=== PATIENT | male | born 1950 | race Caucasian/White ===

== ENCOUNTER 2022-08-23 12:07 | Emergency (ER) | payer OTHER, SELFPAY ==
--- NOTE | ~2022-08-23 | CT_ITS ---
EXAMINATION: CT brain wo con DATE: 08/23/2022 16:43 INDICATION: Left eye pain for one month. TECHNIQUE: Computed tomography (CT) of the head was performed without intravenous contrast. The dose- length product was 605.33 mGy-cm. Automated exposure control and iterative reconstruction technique w ere employed. COMPARISON: None FINDINGS: Generalized atrophy. There are scattered mild periventricular and subcortical white matter changes, most likely related to small vessel ischemic disease (microangiopathy). No acute intracrania l hemorrhage, infarction, mass or mass effect. No ventriculomegaly or midline shift. Paranasal sinuse s and mastoids are pneumatized. No depressed skull fractures. IMPRESSION: 1. No acute intracranial abnormality. 2: Chronic age-related findings. Reviewed, dictated and finalized at location A. [facility]
[2022-08-23 12:15] VITALS: BP 151/93; PULSE 68; RESP 20; TEMP 36.6; O2SAT 98
[2022-08-23 16:05] VITALS: BP 149/71; PULSE 67; RESP 18; O2SAT 99
--- NOTE | 2022-08-23 16:47 | ED.EYEPROB ---
HPI - Eye Problem General Chief complaint: Eye Problems Stated complaint: pain behind left eye. Sent by PCP for cat scan Time Seen by Provider: 08/23/22 16:23 History of Present Illness HPI Narrative: Pt presents with intermittent brief pain behind left eye for the last few days. Pt says he had some difficulty seeing when driving at night the other night but otherwise vision is similar to his baseline. Pt says the sharp pain lasts for a second or two and resolves. Pt denies ALMANZA, Nausea or vomiting. Related Data Allergies Allergy/AdvReac Type Severity Reaction Status Date / Time No Known Allergies Allergy Mild Verified 06/01/22 10:58 Review of Systems Review of Systems: All systems reviewed & are unremarkable except as noted in HPI and below PMFSH Past Medical History Medical History Alcohol abuse Arthritis of spine Atherosclerosis of abdominal aorta Benign essential HTN Elevated PSA Herniated disc Hyperlipidemia Lumbar spondylosis Melanoma Peritonitis Surgical History Surgical History H/O melanoma excision chest and back History of cholecystectomy History of reversal of ileostomy Hx of ileostomy Family History Family History Father Hypertension Social History Social History (Updated 06/01/22 @ 10:59 by Marianna Bradford) Social History: Smoking status: Never smoker Second hand tobacco smoke exposure: No Alcohol intake: current Drinks per week: 28 Alcohol use details: Pt drinks 4 alcoholic drinks a day. Substance use: never Substance use type: does not use Gender identity (if verbalized by the patient): Male Sexual Orientation (if Verbalized by the Patient): Straight or Heterosexual Exam Const: General: healthy appearing Nutritional Appearance: well nourished Orientation/consciousness: patient oriented x3 Limitations: no limitations HENMT: Head: normal to inspection Eyes: Conjunctivae: conjunctivae normal Pupils: Equal, round and reactive pupils present EOM: EOMs intact bilaterally Direct Ophthalmoscopy: no photophobia Other: eye not firm to palpation, pupils reactive, not midpoint Neck: Neck: normal visual inspection Resp: Effort & Inspection: normal respiratory effort Auscultation: clear to auscultation bilaterally Cardio: Rate: regular rate Rhythm: regular rhythm GI: Auscultation: normal bowel sounds Skin: General skin exam: normal color Rashes: no rashes Neuro: General: patient oriented x3, moves all extremities, no meningeal signs, no focal motor deficits and CN's II-XI intact bilaterally Cranial nerves: Yes Nystagmus not present Speech: normal speech Extrem: General: normal to inspection and no clubbing, cyanosis or edema Psych: Mental Status: mental status grossly normal Affect: normal affect Attitude: cooperative Course Vital Signs Vital signs: Vital Signs Temperature 97.9 F 08/23/22 12:15 Pulse Rate 68 08/23/22 12:15 Respiratory Rate 20 08/23/22 12:15 Blood Pressure 151/93 H 08/23/22 12:15 Pulse Oximetry 98 08/23/22 12:15 Oxygen Delivery Room Air 08/23/22 12:15 Temperature 97.9 F 08/23/22 12:15 Pulse Rate 65 08/23/22 17:21 Respiratory Rate 18 08/23/22 17:21 Blood Pressure 137/62 08/23/22 17:21 Pulse Oximetry 98 08/23/22 17:21 Oxygen Delivery Room Air 08/23/22 16:05 MDM - Eye Problem Lab Data Result diagrams: 08/23/22 16:03 Labs: Lab Results 08/23/22 Range/Units 16:03 Sodium Pending Potassium Pending Chloride Pending Carbon Dioxide Pending Anion Gap Pending BUN Pending Creatinine Pending Estim Creat Clear Calc Pending Estimated GFR Pending Glucose Pending Calcium Pending Total Bilirubin Pending AST Pending ALT Pending Alkaline Phosphatase Pending Tot
--- NOTE | 2022-08-23 16:56 | PC.NURSE ---
Per EDP Millan, no further blood work or EKG needed.
[2022-08-23 17:21] VITALS: BP 137/62; PULSE 65; RESP 18; O2SAT 98
== END 2022-08-23 17:21 | disposition home or self-care (01) ==
PROVIDERS: Emergency Provider Emergency Medicine; PCP Family Medicine
DX: H57.12 Ocular pain, left eye (principal); M19.90 Unspecified osteoarthritis, unspecified site; I10 Essential (primary) hypertension
CPT/HCPCS: 36415; 70450; 99284

== ENCOUNTER 2024-10-26 09:43 | Emergency (ER) | payer OTHER, SELFPAY ==
--- NOTE | ~2024-10-26 | CT_ITS ---
EXAMINATION: CT abdomen pelvis w con DATE: 10/26/2024 10:55 INDICATION: Abdominal pain. TECHNIQUE: Computed tomography (CT) of the abdomen and pelvis was performed with 100 mL Omnipaque 350 intravenous contrast. Automated exposure control and iterative reconstruction technique were employe d. The dose-length product was 1271.97 mGy-cm. COMPARISON: CT abdomen and pelvis 09/24/2010 FINDINGS: The visualized portions of the lung bases demonstrate mild atelectasis and mild chronic gabriela g disease. No pleural effusion. The heart size is normal. There are coronary artery calcifications. T here are calcifications of the aortic valve. No pericardial effusion. There is pneumobilia in the tia er, likely secondary to sphincterotomy. There are changes of cholecystectomy. The spleen, pancreas, a nd adrenal glands are normal. There are cysts in the kidneys measuring up to 8 mm on the right. There is a 2 mm stone in right kidney. The prostate is moderately enlarged. There is diverticulosis of the colon without evidence of diverticulitis. There are changes right hemicolectomy. There are no pathol ogically enlarged lymph nodes. There is no free intraperitoneal fluid. There are multiple supraumbili rea ventral hernias containing fat. There is moderate lower lumbar spondylosis. IMPRESSION: 1. Supraumbilical ventral hernias containing fat. Reviewed, dictated and finalized at location A. ANALYST
[2024-10-26 09:45] VITALS: BP 172/73; PULSE 63; RESP 20; TEMP 36.4; O2SAT 100
--- OUTSIDE RECORDS SUMMARY | 2024-10-26 09:45 | XMS_ITS | Referral Summary ---
Author Organization [facility] Address [address] [place] [place] [address] Care Team Providers Care Flaring Machine Operator Name Role Phone Unavailable Primary Care Provider Unavailabl e Source Comments [facility],non-owned Affiliates and Associated Physician Practices is amultiple site organization consisting of ambulatory clinics and hospital sitesin [place], [place], [place] and [place]. This disclosure is being madepursuant to the Care Everywhere program and may not contain all information available regarding this patient. Last updated 18.[facility] [employer] Social History Tobacco Use Types Packs/Day Years Used Date Smoking Tobacco: Never Assessed Sex and Gender Information Value Date Recorded Sex Assigned at Not on file Gender Identity Not on file Sexual Orientation Not on file Plan of Treatment Not on file
--- OUTSIDE RECORDS SUMMARY | 2024-10-26 09:45 | XMS_ITS | Encounter Summary ---
Author Organization [facility] Address [address] [place] [address] Care Team Providers Care Big Data Software Engineer Name Role Phone Unavailable Primary Care Provider Unavailabl e Encounter Details Date Type Department Care Team (Late st Contact Info) Description 05/14/2024 Lab Requisition [facility] - DermPath Lab [address] [place] [address] Harris Hopkins MD [facility] DERMATOLOGY [address] [place] [phone] Basal cell carcinoma of skin of left lower limb, including hip Social History Tobacco Use Types Packs/Day Years Used Date Smoking Tobacco: Never Assessed Sex and Gender Information Value Date Recorded Sex Assigned at Not on file Gender Identity Not on file Sexual Orientation Not on file documented as of this encounter Plan of Treatment Not on file documented as of this encounter Procedures Procedure Name Priority Date/Time Associated Diagnosis Comments DERMATOPATHOLOGY Routine 05/14/2024 3:33 AM CDT Basal cell carcinoma of skin of left lower limb, including hip documented in this encounter Results * DERMATOPATHOLOGY (05/14/2024 3:33 AM CDT) Case Report Dermatopathology Report ? Case: [id number] ? Authorizing Provider: ??Harris Hopkins MD ? Collected: ? 05/14/2024 03:33 AM ? Ordering Location: ? [facility] - ??Received: ?05/15/2024 11:02 AM ? DermPath Lab ? Pathologist: ? Claudia Damon MD ? Specimen: ?Skin, left anterior distal thigh ? 4 2:50 PM CDT DERMATOPATHOLOGY LABORATORY Final Diagnosis Specimen A. SKIN, left anterior distal thigh: BASAL CELL CARCINOMA (C44.719) NOT PRESENT AT MARGIN DERMAL SCAR (L90.5) 4 2:50 PM CDT DERMATOPATHOLOGY LABORATORY Clinical History BCC Please check margins 4 2:50 PM CDT DERMATOPATHOLOGY LABORATORY Gross Description Specimen A: Received is one formalin filled container labeled with the patient's name and designated left anterior distal thigh. The specimen consists of a non-oriented ellipse of skin measuring 67b26h5 mm. The epidermal surface is unremarkable. The margin is inked green. The 12 o'clock and 6 o'clock tips are submitted in cassette 1. The remainder of the ellipse is serially sectioned and submitted in cassette 2-4. Jar 0. 4 2:50 PM CDT DERMATOPATHOLOGY LABORATORY Microscopic Description Specimen A. SKIN, left anterior distal thigh: Within the dermis there are aggregates of basaloid cells with a high nuclear to cytoplasmic ratio and peripheral palisading. This lesion is not present at the margin of the specimen. There are fibroblasts and collagen bundles oriented parallel to the skin surface with elongated blood vessels, some of which are oriented perpendicular to the skin surface. 4 2:50 PM CDT DERMATOPATHOLOGY LABORATORY Disclaimer An external and internal positive and negative controls are appropriate for the histochemical, immunohistochemical and immunofluorescence stain(s) in this case (if any), except where stated explicitly. The performance characteristics of the stain(s) cited in this report were developed and its performance characteristic determined by the Dermatopathology Laboratory at [facility], directed by Dr. Geoffrey Sosa. These tests need not be, and therefore are not, approved by the [place] Food and Drug Administration. The tests are used for clinical purposes. Billing Codes Specimen Charges Stain Charges 50952 1 4 2:50 PM CDT DERMATOPATHOLOGY LABORATORY Embedded Images 4 2:50 PM CDT DERMATOPATHOLOGY LABORATORY Pathology/Cytolo gy TISSUE SPECIMEN FROM SKIN / Unknown 05/14/2024 3:33 AM CDT 05/15/2024 11:02 AM CDT Harris Hopkins MD LAB - PATHOLOGY/CYTO LOGY ORDERABLES DERMATOPATHOLOGY LABORATORY [facility] - Department of Dermatology [address], [address] [phone] documented in this encounter Visit Diagnoses Diagnosis Basal cell carcinoma of skin of left lower limb, including hip Basal cell carcinoma of skin of lower limb, including hip documented in this encounter
--- OUTSIDE RECORDS SUMMARY | 2024-10-26 09:45 | XMS_ITS | Patient Health Summary ---
Author Organization [facility] Address [address] [place] [address] Care Team Providers Care Neuropathologist Name Role Phone Unavailable Primary Care Provider Unavailabl e Note from [facility],non-owned Affiliates and Associated Physician Practices is amultiple site organization consisting of ambulatory clinics and hospital sitesin [place], [place], [place] and [place]. This disclosure is being madepursuant to the Care Everywhere program and may not contain all information available regarding this patient. Last updated 18.[facility] [employer] Social History Tobacco Use Types Packs/Day Years Used Date Smoking Tobacco: Never Assessed Sex and Gender Information Value Date Recorded Sex Assigned at Not on file Gender Identity Not on file Sexual Orientation Not on file Procedures * DERMATOPATHOLOGY(Performed 05/14/2024) Performed for Basal cell carcinoma of skin of left lower limb, including hip Results * DERMATOPATHOLOGY (05/14/2024 3:33 AM CDT) Case Report Dermatopathology Report ? Case: [id number] ? Authorizing Provider: ??Harris Hopkins MD ? [...] LABORATORY Clinical History BCC Please check margins 2:50 PM CDT DERMATOPATHOLOGY LABORATORY Gross Description Specimen A: Received is one formalin filled container labeled with the patient's name and designated left anterior distal thigh. The specimen consists of a non-oriented ellipse of skin measuring 16w49x5 mm. The epidermal surface is unremarkable. The [...] to the skin surface. 4 2:50 PM T DERMATOPATHOLOGY LABORATORY Disclaimer An external and internal positive and negative controls are appropriate for the histochemical, immunohistochemical and immunofluorescence stain(s) in this case (if any), except where stated explicitly. The performance characteristics of the stain(s) cited in this report were developed and its performance characteristic determined by the Dermatopathology Laboratory at [facility], directed by Dr. Geoffrey Sosa. These tests need not be, and therefore are not, approved by the [place] Food and Drug Administration. The tests are used for clinical purposes. Billing Codes Specimen Charges Stain Charges 26841 1 4 2:50 PM CDT DERMATOPATHOLOGY LABORATORY Embedded Images 4 2:50 PM CDT DERMATOPATHOLOGY LABORATORY Pathology/Cytolo gy TISSUE SPECIMEN FROM SKIN / Unknown 05/14/2024 3:33 AM CDT 05/15/2024 11:02 AM CDT Harris Hopkins MD LAB - PATHOLOGY/CYTO LOGY ORDERABLES DERMATOPATHOLOGY LABORATORY [facility] - Department of Dermatology [address], [address] [phone]
--- OUTSIDE RECORDS SUMMARY | 2024-10-26 09:45 | XMS_ITS | Clinical Summary ---
Author Organization [facility] Address [address] [place] [address] Care Team Providers Care Side Show Entertainer Name Role Phone Unavailable Primary Care Provider Unavailabl e Source Comments [facility],non-owned Affiliates and Associated Physician Practices is amultiple site organization consisting of ambulatory clinics and hospital sitesin [place], [place], [place] and [place]. This disclosure is being madepursuant to the Care Everywhere program and may not contain all information available regarding this patient. Last updated 18.[facility] Social History Tobacco Use Types Packs/Day Years Used Date Smoking Tobacco: Never Assessed Sex and Gender Information Value Date Recorded Sex Assigned at Not on file Gender Identity Not on file Sexual Orientation Not on file Plan of Treatment Health Maintenance Due Date Last Done Comments COLOGUARD (AGES 45-75) - COL ON CA SCREENING 1951 COLON MONITORING 1951 COLONOSCOPY - COLON CA SCREENING 1951 CT COLONOGRAPHY - COLON CA SCREENING 1950 Colorectal Cancer Screening 1950 FIT - COLON CA SCREENING 1951 FLEX SIG - COLON CA SCREENING 1950 LIPID TESTING 1950 HEPATITIS C SCREENING 05/03/1969 DTAP/TDAP/TD VACCINES (1 - Tdap) 1970 PNEUMOCOCCAL VACCINE 50+ (1 of 1 - PCV) 2001 ZOSTER VACCINE (1 of 2) 2001 COVID-19 VACCINE ( - 2023-2 5 season) 2024 INFLUENZA VACCINE (#1) 2024 DEPRESSION SCREENING 09/25/2024 MEDICARE AWV ? CALENDAR YEAR 2024 Respiratory Syncytial Virus (RSV) Vaccine Pt: or over 60 yrs (1 - 1-dose 75+ series) 2026 HEPATITIS B VACCINE Aged Out No longe r eligible based on patient's age to complete this topic HIB VACCINE Aged Out No longer eligi ble based on patient's age to complete this topic HPV VACCINE Aged Out No longer eligi ble based on patient's age to complete this topic MENINGOCOCCAL (Group B) VACCINE Aged Out No longer eligible based on patient's age to complete this topic MENINGOCOCCAL VACCINE Aged Out No maribel mavis eligible based on patient's age to complete this topic
--- NOTE | 2024-10-26 09:58 | ED.ABDPAIN ---
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 Patient denies any fever, chills, nausea, vomiting, diarrhea, constipation or urinary symptoms. He denied any recent new physical activity or stress. History of cholecystectomy, appendectomy, colon resection secondary to unknown etiology. Related Data Allergies Allergy/AdvReac Type Severity Reaction Status Date / Time No Known Allergies Allergy Mild Verified 10/26/24 09:54 Review of Systems Review of Systems: All systems reviewed & are unremarkable except as noted in HPI and below PMFSH Past Medical History Medical History Atherosclerosis of abdominal aorta Alcohol abuse Lumbar spondylosis Arthritis of spine Elevated PSA Melanoma Hyperlipidemia Benign essential HTN Peritonitis Herniated disc Surgical History Surgical History Hx of ileostomy H/O melanoma excision chest and back History of reversal of ileostomy History of cholecystectomy Family History Family History Father Hypertension Social History Social History Social History: Smoking status: Never smoker Second hand tobacco smoke exposure: No Alcohol intake: current Drinks per week: 28 Alcohol use details: Pt drinks 4 alcoholic drinks a day. Substance use: never Substance use type: does not use Do You Feel Safe in your Home?: Yes Lack of Transportation: No Lack of Food: Never True Current Housing: I Have Housing Concerned About Future Housing: No Difficulty Paying Gas/Electric Bills: No Difficulty Paying for Meds: No Currently Unemployed: YES Education: Don't Know Difficulty w/ Childcare or Family Care: No Living arrangements: with family Occupation/Education: retired Gender identity (if verbalized by the patient): Male Sexual Orientation (if Verbalized by the Patient): Straight or Heterosexual Exam Narrative: General appearance: Well-developed, well-nourished Skin: Normal color Head: Normocephalic, nontraumatic Eyes: Clear conjunctiva ENT: Oropharynx normal, ears normal, nose normal Neck: Supple, nontender Chest and respiratory: Airway patent, no respiratory distress, no accessory muscle use Heart: Regular rate/rhythm Abdomen: Soft, diffuse tenderness lower abdomen bilaterally, no guarding or rebound, no organomegaly, quiet bowel sounds Vascular: Normal peripheral pulses, normal capillary refill. 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, no gross motor deficit Course Vital Signs Vital signs: Vital Signs Temperature 36.4 C L 10/26/24 09:45 Pulse Rate 63 10/26/24 09:45 Respiratory Rate 20 10/26/24 09:45 Blood Pressure 172/73 H 10/26/24 09:45 Pulse Oximetry 100 10/26/24 09:45 Oxygen Delivery Room Air 10/26/24 09:45 Temperature 36.6 C 10/26/24 11:30 Pulse Rate 76 10/26/24 11:30 Respiratory Rate 14 10/26/24 11:30 Blood Pressure 140/62 10/26/24 11:30 Pulse Oximetry 97 10/26/24 11:30 Oxygen Delivery Room Air 10/26/24 09:45 MDM - Abdominal Pain MDM Narrative Medical decision making narrative: Patient presents with abdominal pain Vital signs showing blood pressure 172/73 Physical examination showing diffuse tenderness of the abdomen Differential diagnosis include cholecystitis, appendicitis, pancreatitis, constipation, colitis, diverticulitis, urinary tract infection, stress like symptoms Blood workup today includes CBC, CMP lipase showed insignificant abnormality Urinalysis showed no evidence of infection CT abdomen and pelvis with IV contrast showed umbilical hernia containing fat. On arrival to the ED patient pain was 10/10, currently 2/10. Patient is telling me that the pain was so severe this morning according get up or stand or sit or lay down with very a uncomfortable. I did offer patient to be hospitalized overnight to monitor his abdominal pain, he declined and would like to see how it goes at home. Diagnosis abdominal pain of unknown etiology Discharged on Bentyl, Tylenol, ibuprofen as needed The pt was discharged to home.the pt,s condition upon discharge was fair,education was provided to the pt in reference to the final impression,discharge study results,treatment,prognosis and need for follow up . Lab Data 10/26/24 10:01 10/26/24 10:01 Labs: Lab Results 10/26/24 10/26/24 10/26/24 Range/Units 10:01 10:11 10:37 WBC 6.5 (4.5-10.0) K/mm3 RBC 4.70 (4.6-6.20) M/mm3 Hgb 15.0 (14.0-18.0) g/dL Hct 44.2 (42.0-52.0) % MCV 94.0 (80-100) fl MCH 31.9 (26-34) pg MCHC 33.9 (32-36) g/dl RDW 13.0 (11.5-14.5) % Plt Count 191 (150-375) k/mm3 MPV 10.4 (7.4-10.4) fl Immature Gran % (Auto) 0.8 H (0-0.5) % Neut % (Auto) 75.5 H (45.5-73.1) % Lymph % (Auto) 15.2 L (18.3-44.2) % Kay % (Auto) 5.7 (2.6-8.5) % Eos % (Auto) 2.0 (0-4.4) % Baso % (Auto) 0.8 (0.2-1.2) % Lymph # (Auto) 0.98 (0.9-3.2) K/mm3 Kay # (Auto) 0.4 (0.1-0.6) K/mm3 Eos # (Auto) 0.1 (0-0.3) K/mm3 Baso # (Auto) 0.1 (0.0-0.1) K/mm3 Abs Immat Gran (auto) 0.05 H (0.00-0.031) K/mm3 Absolute Neuts (auto) 4.9 (1.3-6.7) K/mm3 Absolute Nucleated RBC 0.000 (0.0-0.012) K/mm3 Nucleated RBC % 0.0 (0.0-0.2) % Sodium 138 (137-145) mmol/L Potassium 4.6 (3.4-5.0) mmol/L Chloride 105 (98-107) mmol/L Carbon Dioxide 19 L (22-30) mmol/L Anion Gap 14 H (4-12) mmol/L BUN 16 (9-20) mg/dL Creatinine 0.99 (0.7-1.3) mg/dL Estim Creat Clear Calc 78 ml/min Estimated GFR > 60 (59 - ) Glucose 149 H (65-110) mg/dL Lactic Acid 1.2 (0.7-2.0) mmol/L Calcium 9.6 (8.4-10.2) mg/dL Total Bilirubin 0.6 (0.2-1.3) mg/dL AST 26 (17-59) U/L ALT 26 (6-50) U/L Alkaline Phosphatase 68 (38-126) U/L Troponin I < 0.012 (0.000-0.034) ng/mL Total Protein 8.0 (6.3-8.2) g/dL Albumin 4.6 (3.5-5.1) g/dL Lipase 122 (23-300) U/L Urine Color Yellow (Yellow) Urine Appearance Clear (Clear) Urine pH 5.0 (5.0-9.0) Ur Specific [place] 1.024 (1.001-1.035) Urine Protein Trace (Negative) mg/dL Urine Glucose (UA) Negative (Negative) mg/dL Urine Ketones Negative (Negative) mg/dL Ur Blood (Man) 1+ H (Negative) Urine Nitrate Negative (Negative) Urine Bilirubin Negative (Negative) Urine Urobilinogen 0.2 (<2.0) mg/dL Leukocyte Esterase Rfl Negative (Negative) JAYJAY/UL Urine RBC 0-2 (0-2) /hpf Urine WBC 0-5 (0-3) /hpf Ur Squamous Epith Cells None seen (Few) /hpf Urine Bacteria None seen /hpf Urine Casts 0-2 Imaging Data Radiologist's impression: ITS Impressions Abdomen/Pelvis CT 10/26/24 10:56 IMPRESSION: 1. Supraumbilical ventral hernias containing fat. Critical Care Time Critical Care Time Critical Care Time: No Discharge Plan Discharge Clinical Impression: Abdominal pain Patient Disposition: Home, Self-Care Condition: Stable Instructions: Abdominal Pain (ED) Patient Language: Kinyarwanda Prescriptions: New dicyclomine 20 mg tablet 20 mg PO QID Qty: 20 0RF No Action amlodipine 5 mg tablet See Rx Instructions .ROUTE .COMPLEX Qty: 100 3RF Dose Instruction: TAKE 1 TABLET BY MOUTH EVERY DAY Rx Instructions: TAKE 1 TABLET BY MOUTH EVERY DAY losartan 100 mg tablet See Rx Instructions .ROUTE .COMPLEX Qty: 90 4RF Dose Instruction: TAKE 1 TABLET BY MOUTH EVERY DAY Rx Instructions: TAKE 1 TABLET BY MOUTH EVERY DAY metoprolol succinate 50 mg tablet extended release 24 hr See Rx Instructions .ROUTE .COMPLEX Qty: 90 1RF Dose Instruction: TAKE 1 TABLET BY MOUTH EVERY DAY Rx Instructions: TAKE 1 TABLET BY MOUTH EVERY DAY rosuvastatin 10 mg tablet See Rx Instructions .ROUTE .COMPLEX Qty: 90 1RF Dose Instruction: TAKE 1 TABLET BY MOUTH EVERY DAY Rx Instructions: TAKE 1 TABLET BY MOUTH EVERY DAY Follow-up/Referrals: Angelo Palmer MD [Primary Care Provider] -
--- NOTE | 2024-10-26 09:59 | ECG_ITS ---
Test Date: 2024-10-26 11:27:26 Measurements Intervals [place] Rate: 73 P: 29 CO: 219 QRS: 48 QRSD: 93 T: 67 QT: 391 QTc: 432 Interpretive Statements SINUS RHYTHM WITH FIRST DEGREE AV BLOCK WITH OCCASIONAL VENTRICULAR PREMATURE COMPLEXES BORDERLINE ECG No previous ECG available for comparison Electronically Signed On 10-26-2024 18:14:15 CHEMICAL LIBRARIAN by Hermelindo Ott D.O.
--- OUTSIDE RECORDS SUMMARY | 2024-10-26 10:06 | XMS_ITS | Clinical Summary ---
Author Organization [facility] [employer] Address [address] [place] [address] Care Team Providers Care Vegetable Farming Supervisor Name Role Phone Unavailable Primary Care Provider Unavailabl e Source Comments [facility] [employer],non-owned Affiliates and Associated Physician Practices is amultiple site organization consisting of ambulatory clinics and hospital sitesin [place], [place], [place] and [place]. This disclosure is being madepursuant to the Care Everywhere program and may not contain all information available regarding this patient. Last updated 18.[facility] [employer] Social History Tobacco Use Types Packs/Day Years [...]
--- OUTSIDE RECORDS SUMMARY | 2024-10-26 10:06 | XMS_ITS | Encounter Summary ---
Author Organization [facility] Address [address] [facility] [address] [place] [address] Care Team Providers Care Woods Overseer Name Role Phone Unavailable Primary Care Provider Unavailabl e Encounter Details Date Type Department Care Team (Late st Contact Info) Description 05/14/2024 Lab Requisition [facility] - DermPath Lab [address] [facility], [place] [address] Harris Hopkins MD [facility] DERMATOLOGY [address] [place] [phone] Basal cell carcinoma of skin of [...] CDT) Case Report Dermatopathology Report ? Case: [id number] ? Authorizing Provider: ??Harris Hopkins MD ? [...] of a non-oriented ellipse of skin measuring 65d28z6 mm. The epidermal surface is unremarkable. The [...] characteristic determined by the Dermatopathology Laboratory at [facility], directed by Dr. Geoffrey Sosa. These tests need not be, and therefore are not, approved by the [place] Food and Drug Administration. The tests are used for clinical purposes. Billing Codes Specimen Charges Stain Charges 37737 1 4 2:50 PM CDT DERMATOPATHOLOGY LABORATORY Embedded Images 4 2:50 PM CDT DERMATOPATHOLOGY LABORATORY Pathology/Cytolo gy TISSUE SPECIMEN FROM SKIN / Unknown 05/14/2024 3:33 AM CDT 05/15/2024 11:02 AM CDT Harris Hopkins MD LAB - PATHOLOGY/CYTO LOGY ORDERABLES DERMATOPATHOLOGY LABORATORY [facility] - Department of Dermatology [address], [address] [phone] documented in this encounter Visit Diagnoses Diagnosis Basal cell carcinoma of skin of left lower limb, including hip Basal cell carcinoma of skin of lower limb, including hip documented in this encounter
--- OUTSIDE RECORDS SUMMARY | 2024-10-26 10:06 | XMS_ITS | Referral Summary ---
Author Organization [facility] Address [address] [place] [address] Care Team Providers Care Athletic Shoe Designer Name Role Phone Unavailable Primary Care Provider Unavailabl e Source Comments [facility],non-owned Affiliates and Associated Physician Practices is amultiple site organization consisting of ambulatory clinics and hospital sitesin [place], [place], [place] and [place]. This disclosure is being madepursuant to the Care Everywhere program and may not contain all information available regarding this patient. Last updated 18.[facility] [employer] Social History Tobacco Use Types Packs/Day Years Used Date Smoking Tobacco: Never Assessed Sex and Gender Information Value Date Recorded Sex Assigned at Not on file Gender Identity Not on file Sexual Orientation Not on file Plan of Treatment Not on file
--- OUTSIDE RECORDS SUMMARY | 2024-10-26 10:06 | XMS_ITS | Patient Health Summary ---
Author Organization [facility] Address [address] [place] [address] Care Team Providers Care Intake Counselor Name Role Phone Unavailable Primary Care Provider Unavailabl e Note from [facility],non-owned Affiliates and Associated Physician Practices is amultiple site organization consisting of ambulatory clinics and hospital sitesin [place], [place], [place] and [place]. This disclosure is being madepursuant to the Care Everywhere program and may not contain all information available regarding this patient. Last updated 18.[facility] [employer] Social History Tobacco Use Types Packs/Day Years [...] CDT) Case Report Dermatopathology Report ? Case: [id number] ? Authorizing Provider: ??Harris Hopkins MD ? [...] of a non-oriented ellipse of skin measuring 32e32k2 mm. The epidermal surface is unremarkable. The [...] characteristic determined by the Dermatopathology Laboratory at [facility], directed by Dr. Geoffrey Sosa. These tests need not be, and therefore are not, approved by the [place] Food and Drug Administration. The tests are used for clinical purposes. Billing Codes Specimen Charges Stain Charges 77108 1 4 2:50 PM CDT DERMATOPATHOLOGY LABORATORY Embedded Images 4 2:50 PM CDT DERMATOPATHOLOGY LABORATORY Pathology/Cytolo gy TISSUE SPECIMEN FROM SKIN / Unknown 05/14/2024 3:33 AM CDT 05/15/2024 11:02 AM CDT Harris Hopkins MD LAB - PATHOLOGY/CYTO LOGY ORDERABLES DERMATOPATHOLOGY LABORATORY [facility] - Department of Dermatology [address], [address] [phone]
[2024-10-26] MEDS: SODIUM CHLORIDE 0.9% IV 1,000 ML 999 ML IV CONT (10:08)
[2024-10-26] MEDS: HYDROmorphone HCL INJ (*CRX) 1 MG/ML SYR 0.5 MG IV PUSH (10:09)
[2024-10-26] MEDS: ONDANSETRON INJ 4 MG/2 ML VIAL IV PUSH (10:09)
[2024-10-26 10:17] LABS: Basophils Absolute Auto 0.1 K/mm3 (0.0-0.1); Basophils Percent Auto 0.8 % (0.2-1.2); Eosinophils Absolute Auto 0.1 K/mm3 (0-0.3); Hematocrit 44.2 % (42.0-52.0); Immature Granulocyte Absolute 0.05 K/mm3 (0.00-0.031); Immature Granulocyte Percent A 0.8 % (0-0.5); Lymphocytes Absolute Auto 0.98 K/mm3 (0.9-3.2); Lymphocytes Percent Auto 15.2 % (18.3-44.2); Mean Corpuscular HGB Conc 33.9 g/dl (32-36); Mean Corpuscular Hemoglobin 31.9 pg (26-34); Mean Platelet Volume 10.4 fl (7.4-10.4); Monocytes Absolute Auto 0.4 K/mm3 (0.1-0.6); Monocytes Percent Auto 5.7 % (2.6-8.5); Neutrophils Absolute Auto 4.9 K/mm3 (1.3-6.7); Neutrophils Percent Auto 75.5 % (45.5-73.1); Platelet Count Result 191 k/mm3 (150-375); White Blood Count 6.5 K/mm3 (4.5-10.0)
[2024-10-26 10:29] LABS: Lactic Acid Reflex 1.2 mmol/L (0.7-2.0)
[2024-10-26 10:35] LABS: Alanine Aminotransferase 26 U/L (6-50); Albumin Level 4.6 g/dL (3.5-5.1); Alkaline Phosphatase 68 U/L (38-126); Anion Gap 14 mmol/L (4-12); Aspartate Amino Transferase 26 U/L (17-59); Bilirubin,Total 0.6 mg/dL (0.2-1.3); Blood Urea Nitrogen 16 mg/dL (9-20); Calcium 9.6 mg/dL (8.4-10.2); Carbon Dioxide 19 mmol/L (22-30); Chloride 105 mmol/L (98-107); Estimated CRCL calculation 78 ml/min; Estimated Glomerular Filt Rate > 60; Glucose 149 mg/dL (65-110); Lipase 122 U/L (23-300); Potassium 4.6 mmol/L (3.4-5.0); Sodium 138 mmol/L (137-145)
[2024-10-26 10:42] LABS: Troponin I < 0.012 ng/mL (0.000-0.034)
[2024-10-26 10:50] LABS: Add Urine Microscopic? YES; Appearance Urine Clear (Clear); Bacteria Urine None Seen /hpf; Bilirubin Urine Negative (Negative); Blood Urine 1+ (Negative); Color Urine Yellow (Yellow); Glucose Urine UA Negative (Negative); Ketones Urine Negative (Negative); Leukocyte Esterase Ur Negative LEU/UL (Negative); Nitrate Urine Negative (Negative); Non Pathogenic Casts 0-2; Protein Urine Trace mg/dL (Negative); RBC Urine 0-2 /hpf (0-2); Specific Grav Ur 1.024 (1.001-1.035); Squamous Epithelial Cell Urine None Seen /hpf (Few); Urobilinogen Urine 0.2 mg/dL (<2.0); WBC Urine 0-5 /hpf (0-3)
[2024-10-26 11:30] VITALS: BP 140/62; PULSE 76; RESP 14; TEMP 36.6; O2SAT 97
[2024-10-26 12:18] VITALS: BP 140/62; PULSE 66; RESP 16; O2SAT 98
[2024-10-26 13:03] VITALS: BP 149/73; PULSE 68; RESP 18; TEMP 36.4; O2SAT 100
== END 2024-10-26 13:05 | disposition home or self-care (01) ==
PROVIDERS: Emergency Provider Emergency Medicine; PCP Family Medicine
DX: R10.30 Lower abdominal pain, unspecified (principal); Z85.820 Personal history of malignant melanoma of skin; I10 Essential (primary) hypertension; E78.5 Hyperlipidemia, unspecified
CPT/HCPCS: 36415; 74177; 80053; 81001; 83605; 83690; 84484; 85025; 93005; 96361; 96374; 96375; 99284; J1171; J2405; J7030; Q9967

== ENCOUNTER 2024-10-31 12:01 | Observation (INO) | payer OTHER, SELFPAY ==
[2024-10-31] VITALS (9 sets, daily range): BP systolic 117–137; BP diastolic 48–74; PULSE 66–77; RESP 12–18; TEMP 36.3–37.3; O2SAT 95–100
--- NOTE | ~2024-10-31 | US_ITS ---
EXAMINATION: US scrotum doppler DATE: 10/31/2024 14:00 INDICATION: Scrotal pain and swelling TECHNIQUE: Testicular sonogram utilizing grayscale and Doppler COMPARISON: None. FINDINGS: The right testis measures 3.8 x 3.5 x 3.5 cm. The left testis measures 3.5 x 2.6 x 3.1 cm. There is h eterogeneous echogenicity with coarsened echotexture of the right testis relative to the left. Vascul ar flow is seen within the left testis but no definitive flow within the right testis on color Dopple r. There is a small complex right hydrocele with numerous thin linear echogenic internal septations. The right epididymis poorly defined, very echogenic and shadowing. 6 mm cyst within the otherwise nor mal left epididymis with normal vascular flow on color Doppler. Small anechoic left hydrocele. There is scrotal wall edema. IMPRESSION: 1. Enlarged and edematous left testis and epididymis with no evident vascular flow on color Doppler consistent with left testicular torsion. The ED physician Dr. Ling has been notified of these f indings by Dr. Menard. Reviewed, dictated and finalized at location A. LOADER IMPRESSION: 1. Enlarged and edematous left testis and epididymis with no evident vascular flow on color Doppler consistent with left testicular torsion. The ED physician Dr. Ling has been notified of these findings by Dr. Menard.
--- NOTE | ~2024-10-31 | CT_ITS ---
EXAMINATION: CT abdomen pelvis wo con DATE: 10/31/2024 13:56 INDICATION: Low abdominal pain. TECHNIQUE: Computed tomography (CT) of the abdomen and pelvis was performed without intravenous contr ast. Automated exposure control and iterative reconstruction technique were employed. The dose-length product was 1530.70 mGy-cm. COMPARISON: CT abdomen and pelvis 10/26/2024 FINDINGS: The visualized portions of lung bases demonstrate mild atelectasis and mild chronic lung di sease. No pleural effusion. The heart size is normal. There are coronary artery calcifications. No pe ricardial effusion. There is diffuse hepatic steatosis. Pneumobilia is likely secondary to sphinctero gregg. There are changes of cholecystectomy. The spleen, pancreas, adrenal glands, and left kidney are normal. There is a 2 mm stone in right kidney. The prostate is moderately enlarged. There is diverti culosis of the colon without evidence of diverticulitis. There are changes of right hemicolectomy. Th ere are no pathologically enlarged lymph nodes. There is no free intraperitoneal fluid. There is scro saadia skin thickening. The right testis demonstrates heterogeneous attenuation. There are small bilater al hydroceles. There is torsion of the right spermatic cord. There is subcutaneous edema in the anter ior perineum. There are no pathologically enlarged lymph nodes. There is no free intraperitoneal flui d. There is a supraumbilical ventral hernias containing fat. There is moderate lumbar spondylosis. IMPRESSION: 1. Torsion of the right spermatic cord. Heterogeneous attenuation of the right testis, consistent wit h infarct. I called this result to Rosy Ling. Reviewed, dictated and finalized at location A. UCT SUPPORT REP IMPRESSION: 1. Torsion of the right spermatic cord. Heterogeneous attenuation of the right testis, consistent with infarct. I called this result to Rosy Ling.
--- OUTSIDE RECORDS SUMMARY | 2024-10-31 12:05 | XMS_ITS | Clinical Summary ---
Author Organization [facility] [employer] Address [address] [place] [address] [place] [address] Care Team Providers Care Order Entry Name Role Phone Unavailable Primary Care Provider Unavailabl e Source Comments [facility] [employer],non-owned Affiliates and Associated Physician Practices is amultiple site organization consisting of ambulatory clinics and hospital sitesin [place], [place], [place] and [place]. This disclosure is being madepursuant to the Care Everywhere program and may not contain all information available regarding this patient. Last updated 18.[facility] [employer] Social History Tobacco Use Types Packs/Day Years [...] (#1) 2024 DEPRESSION SCREENING 09/25/2024 MEDICARE AWV CALENDAR YEAR 2024 Respiratory Syncytial Virus (RSV) [...]
--- OUTSIDE RECORDS SUMMARY | 2024-10-31 12:05 | XMS_ITS | Referral Summary ---
Author Organization [facility] Address [address] [facility] [place] [address] Care Team Providers Care Salvage Clerk Name Role Phone Unavailable Primary Care Provider Unavailabl e Source Comments [facility],non-owned Affiliates and Associated Physician Practices is amultiple site organization consisting of ambulatory clinics and hospital sitesin [place], [place], [place] and [place]. This disclosure is being madepursuant to the Care Everywhere program and may not contain all information available regarding this patient. Last updated 18.[facility] [employer] Social History Tobacco Use Types Packs/Day Years Used Date Smoking Tobacco: Never Assessed Sex and Gender Information Value Date Recorded Sex Assigned at Not on file Gender Identity Not on file Sexual Orientation Not on file Plan of Treatment Not on file
--- OUTSIDE RECORDS SUMMARY | 2024-10-31 12:05 | XMS_ITS | Patient Health Summary ---
Author Organization [facility] [employer] Address [address] [place] [address] Care Team Providers Care Technician Preventative Medicine Name Role Phone Unavailable Primary Care Provider Unavailabl e Note from [facility] [employer],non-owned Affiliates and Associated Physician Practices is amultiple site organization consisting of ambulatory clinics and hospital sitesin [place], [place], [place] and [place]. This disclosure is being madepursuant to the Care Everywhere program and may not contain all information available regarding this patient. Last updated 18.[facility] [employer] Social History Tobacco Use Types Packs/Day Years [...] 3:33 AM CDT) Case Report Dermatopathology Report Case: [id number] Authorizing Provider: Harris Hopknis MD Collected: 05/14/2024 03:33 AM Ordering Location: [facility] - Received: 05/15/2024 11:02 AM DermPath Lab Pathologist: Claudia Damon MD Specimen: Skin, left anterior distal thigh 2:50 PM CDT DERMATOPATHOLOGY LABORATORY Final Diagnosis Specimen A. SKIN, left anterior distal thigh: BASAL CELL CARCINOMA (C44.719) NOT PRESENT AT MARGIN DERMAL SCAR (L90.5) 2:50 PM CDT DERMATOPATHOLOGY LABORATORY Clinical History BCC Please check margins 2:50 PM CDT DERMATOPATHOLOGY LABORATORY Gross Description Specimen A: Received is one formalin filled container labeled with the patient's name and designated left anterior distal thigh. The specimen consists of a non-oriented ellipse of skin measuring 85d12a6 mm. The epidermal surface is unremarkable. The [...] characteristic determined by the Dermatopathology Laboratory at [facility], directed by Dr. Geoffrey Sosa. These tests need not be, and therefore are not, approved by the [place] Food and Drug Administration. The tests are used for clinical purposes. Billing Codes Specimen Charges Stain Charges 92247 1 4 2:50 PM CDT DERMATOPATHOLOGY LABORATORY Embedded Images 2:50 PM CDT DERMATOPATHOLOGY LABORATORY Pathology/Cytolo gy TISSUE SPECIMEN FROM SKIN / Unknown 05/14/2024 3:33 AM CDT 05/15/2024 11:02 AM CDT Harris Hopkins MD LAB - PATHOLOGY/CYTO LOGY ORDERABLES DERMATOPATHOLOGY LABORATORY [facility] - Department of Dermatology [address], [address] [phone]
--- OUTSIDE RECORDS SUMMARY | 2024-10-31 12:05 | XMS_ITS | Encounter Summary ---
Author Organization [facility] Address [address] [place] [address] Care Team Providers Care Magneto Electrician Name Role Phone Unavailable Primary Care Provider Unavailabl e Encounter Details Date Type Department Care Team (Late st Contact Info) Description 05/14/2024 Lab Requisition [facility] - DermPath Lab [address] [facility] [place] [id number] Harris Hopkins MD [facility] DERMATOLOGY [address] [place] [phone] Basal cell carcinoma of skin of [...] AM CDT) Case Report Dermatopathology Report Case: [id number] Authorizing Provider: Harris Hopkins MD Collected: 05/14/2024 03:33 AM Ordering Location: [facility] - Received: 05/15/2024 11:02 AM DermPath Lab [...] of a non-oriented ellipse of skin measuring 94q09g6 mm. The epidermal surface is unremarkable. The margin is inked green. The 12 o'clock and 6 o'clock tips are submitted in cassette 1. The remainder of the ellipse is serially sectioned and submitted in cassette 2-4. Jar 0. 2:50 PM CDT DERMATOPATHOLOGY LABORATORY Microscopic Description [...] are oriented perpendicular to the skin surface. 2:50 PM CDT DERMATOPATHOLOGY LABORATORY Disclaimer An external and internal positive and negative controls are appropriate for the histochemical, immunohistochemical and immunofluorescence stain(s) in this case (if any), except where stated explicitly. The performance characteristics of the stain(s) cited in this report were developed and its performance characteristic determined by the Dermatopathology Laboratory at [facility], directed by Dr. Geoffrey Sosa. These tests need not be, and therefore are not, approved by the [place] Food and Drug Administration. The tests are used for clinical purposes. Billing Codes Specimen Charges Stain Charges 47671 1 2:50 PM CDT DERMATOPATHOLOGY LABORATORY Embedded Images 2:50 PM CDT DERMATOPATHOLOGY LABORATORY Pathology/Cytolo gy TISSUE SPECIMEN FROM SKIN / Unknown 05/14/2024 3:33 AM CDT 05/15/2024 11:02 AM CDT Harris Hopkins MD LAB - PATHOLOGY/CYTO LOGY ORDERABLES DERMATOPATHOLOGY LABORATORY [facility] - Department of Dermatology [address] [phone] documented in this encounter Visit Diagnoses Diagnosis Basal cell carcinoma of skin of left lower limb, including hip Basal cell carcinoma of skin of lower limb, including hip documented in this encounter
--- NOTE | 2024-10-31 12:52 | ED.GENADULT ---
HPI - General Adult General Chief complaint: Urogenital-Male <TAIWO Fu Last Filed: 10/31/24 12:59> Stated complaint: groin pain <TAIWO Fu Last Filed: 10/31/24 12:59> Time Seen by Provider: 10/31/24 12:52 <TAIWO Fu Last Filed: 10/31/24 12:59> Focused HPI: Patient is a 74 y/o male who presents to the ED with c/o scrotal pain/swelling. Patient was seen in the ED here on 10/[address] scan performed which did not show any significant abnormalities. Patient states he was having some swelling in his scrotum and groin at that time, but it became worse on Monday. Reports pain in his testicles intermittently with certain positions, mild lower abdominal pain, difficulty urinating d/t the swelling. Does also report some lightheadedness. Denies dysuria, hematuria, fevers, N/V. Seen by PCP today and referred to the ED. GENERAL: Well-appearing, well-nourished, and in no acute distress. HEAD: Normocephalic, atraumatic. CHEST: Clear to auscultation. ?No respiratory distress. HEART: Regular rate and rhythm.? ABD: Mild TTP in R lower abdomen/groin region. NEURO: ?Alert and oriented x3. Patient screened in triage and initial orders placed.? ?Additional care and disposition to be based upon?diagnostic testing and treatment. <TAIWO Fu Last Filed: 10/31/24 12:59> Source: patient <TAIWO Fu Last Filed: 10/31/24 12:59> Mode of arrival: ambulatory <TAIWO Fu Last Filed: 10/31/24 12:59> Limitations: no limitations <TAIWO Fu Last Filed: 10/31/24 12:59> History of Present Illness HPI narrative: Patient 74-year-old gentleman presents emergency department chief complaint of scrotal pain and swelling the patient was seen on the 1st after he had right-sided abdominal pain the patient states that he then started having pain in his groin and started having swelling in his scrotum patient saw his primary care provider this morning and was sent to the emergency department for evaluation. <Anshu Nunez MD - Last Filed: 10/31/24 15:37> Related Data Allergies/adverse reactions: Allergies Allergy/AdvReac Type Severity Reaction Status Date / Time No Known Allergies Allergy Mild Verified 10/31/24 12:49 <Rosy Ling PA-C - Last Filed: 10/31/24 12:59> Review of Systems Review of Systems: A 10 system review of systems was completed on the patient and is negative except for what is stated in the HPI. Nursing and ancillary documentation was reviewed. <Anshu Nunez MD - Last Filed: 10/31/24 15:37> PMFSH Past Medical History Medical History: Medical History H/O Malignant melanoma Trochanteric bursitis L hip Atherosclerosis of abdominal aorta Alcohol abuse Lumbar spondylosis Arthritis of spine Elevated PSA Melanoma Hyperlipidemia Benign essential HTN Peritonitis Herniated disc <Rosy Ling PA-C - Last Filed: 10/31/24 12:59> Surgical History Surgical History: Surgical History Hx of ileostomy H/O melanoma excision chest and back History of reversal of ileostomy History of cholecystectomy <Rosy Ling PA-C - Last Filed: 10/31/24 12:59> Family History Family History: Family History Father Hypertension <Rosy Ling PA-C - Last Filed: 10/31/24 12:59> Social History Social History: Social History Social History: Smoking status: Never smoker Second hand tobacco smoke exposure: No Alcohol intake: current Drinks per week: 28 Alcohol use details: Pt drinks 4 alcoholic drinks a day. Substance use: never Substance use type: does not use Do You Feel Safe in your Home?: Yes Lack of Transportation: No Lack of Food: Never True Current Housing: I Have Housing Concerned About Future Housing: No Difficulty Paying Gas/Electric Bills: No Difficulty Paying for Meds: No Currently Unemployed: YES Education: Don't Know Difficulty w/ Childcare or Family Care: No Living arrangements: with family Occupation/Education: retired Gender identity (if verbalized by the patient): Male Sexual Orientation (if Verbalized by the Patient): Straight or Heterosexual <Rosy Ling PA-C - Last Filed: 10/31/24 12:59> Exam Narrative: GENERAL: Well-appearing, well-nourished, and in no acute distress. HEAD: Normocephalic, atraumatic. EYES: PERRLA and EOMI. ENT: Nares clear, no rhinorrhea or epistaxis. Mucous membranes moist. NECK: Supple. CHEST: Clear to auscultation. No respiratory distress. HEART: Regular rate and rhythm. No murmur heard. Normal peripheral pulses. ABDOMEN: Soft, nontender, nondistended, normal active bowel sounds. : Scrotum is significantly swollen red tender to palpation EXTREMITIES: Normal range of motion. No edema. SKIN: Warm, dry, no rash. NEURO: No focal deficits. Alert and oriented x3. PSYCH: Normal mood and affect. <Anshu Nunez MD - Last Filed: 10/31/24 15:37> Course Vital Signs Vital signs: Vital Signs Temperature 36.7 C 10/31/24 12:42 Pulse Rate 67 10/31/24 12:42 Respiratory Rate 16 10/31/24 12:42 Blood Pressure 130/48 L 10/31/24 12:42 Pulse Oximetry 98 10/31/24 12:42 Oxygen Delivery Room Air 10/31/24 12:42 Temperature 36.7 C 10/31/24 12:42 Pulse Rate 67 10/31/24 12:42 Respiratory Rate 16 10/31/24 12:42 Blood Pressure 130/48 L 10/31/24 12:42 Pulse Oximetry 98 10/31/24 12:42 Oxygen Delivery Room Air 10/31/24 12:42 <Rosy Ling PA-C - Last Filed: 10/31/24 12:59> Vital Signs Temperature 36.7 C 10/31/24 12:42 Pulse Rate 67 10/31/24 12:42 Respiratory Rate 16 10/31/24 12:42 Blood Pressure 130/48 L 10/31/24 12:42 Pulse Oximetry 98 10/31/24 12:42 Oxygen Delivery Room Air 10/31/24 12:42 Temperature 36.7 C 10/31/24 12:42 Pulse Rate 67 10/31/24 12:42 Respiratory Rate 16 10/31/24 12:42 Blood Pressure 130/48 L 10/31/24 12:42 Pulse Oximetry 98 10/31/24 12:42 Oxygen Delivery Room Air 10/31/24 12:42 <Anshu Nunez MD - Last Filed: 10/31/24 15:37> Medical Decision Making MDM Narrative Medical decision making narrative: MSE by VEENA in triage. <TAIWO Fu Last Filed: 10/31/24 12:59> MSE by VEENA in triage. Differential diagnosis includes testicular torsion, scrotal abscess, ureterolithiasis, CT scan of the abdomen pelvis showed 1. Torsion of the right spermatic cord. Heterogeneous attenuation of the right testis, consistent with infarct. Testicular ultrasound showed 1. Enlarged and edematous left testis and epididymis with no evident vascular flow on color Doppler consistent with left testicular torsion The case was discussed with Urology who will take patient to the operating room <Anshu Nunez MD - Last Filed: 10/31/24 15:37> Vital Signs Vital Signs: Vital Signs Temperature 36.7 C 10/31/24 12:42 Pulse Rate 67 10/31/24 12:42 Respiratory Rate 16 10/31/24 12:42 Blood Pressure 130/48 L 10/31/24 12:42 Pulse Oximetry 98 10/31/24 12:42 Oxygen Delivery Room Air 10/31/24 12:42 Temperature 36.7 C 10/31/24 12:42 Pulse Rate 67 10/31/24 12:42 Respiratory Rate 16 10/31/24 12:42 Blood Pressure 130/48 L 10/31/24 12:42 Pulse Oximetry 98 10/31/24 12:42 Oxygen Delivery Room Air 10/31/24 12:42 <TAIWO Fu Last Filed: 10/31/24 12:59> Vital Signs Temperature 36.7 C 10/31/24 12:42 Pulse Rate 67 10/31/24 12:42 Respiratory Rate 16 10/31/24 12:42 Blood Pressure 130/48 L 10/31/24 12:42 Pulse Oximetry 98 10/31/24 12:42 Oxygen Delivery Room Air 10/31/24 12:42 Temperature 36.7 C 10/31/24 12:42 Pulse Rate 67 10/31/24 12:42 Respiratory Rate 16 10/31/24 12:42 Blood Pressure 130/48 L 10/31/24 12:42 Pulse Oximetry 98 10/31/24 12:42 Oxygen Delivery Room Air 10/31/24 12:42 <Anshu Nunez MD - Last Filed: 10/31/24 15:37> Lab Data Result diagrams: 10/31/24 13:00 10/31/24 13:00 <Rosy Ling PA-C - Last Filed: 10/31/24 12:59> Labs: Lab Results 10/31/24 10/31/24 Range/Units 13:00 15:21 WBC 11.5 H (4.5-10.0) K/mm3 RBC 4.48 L (4.6-6.20) M/mm3 Hgb 14.3 (14.0-18.0) g/dL Hct 42.0 (42.0-52.0) % MCV 93.8 (80-100) fl MCH 31.9 (26-34) pg MCHC 34.0 (32-36) g/dl RDW 13.2 (11.5-14.5) % Plt Count 233 (150-375) k/mm3 MPV 10.7 H (7.4-10.4) fl Immature Gran % (Auto) 0.7 H (0-0.5) % Neut % (Auto) 75.3 H (45.5-73.1) % Lymph % (Auto) 12.5 L (18.3-44.2) % [place] % (Auto) 10.1 H (2.6-8.5) % Eos % (Auto) 1.0 (0-4.4) % Baso % (Auto) 0.4 (0.2-1.2) % Lymph # (Auto) 1.43 (0.9-3.2) K/mm3 [place] # (Auto) 1.2 H (0.1-0.6) K/mm3 Eos # (Auto) 0.1 (0-0.3) K/mm3 Baso # (Auto) 0.1 (0.0-0.1) K/mm3 Abs Immat Gran (auto) 0.08 H (0.00-0.031) K/mm3 Absolute Neuts (auto) 8.6 H (1.3-6.7) K/mm3 Absolute Nucleated RBC 0.000 (0.0-0.012) K/mm3 Nucleated RBC % 0.0 (0.0-0.2) % Sodium 138 (137-145) mmol/L Potassium 4.0 (3.4-5.0) mmol/L Chloride 104 (98-107) mmol/L Carbon Dioxide 19 L (22-30) mmol/L Anion Gap 15 H (4-12) mmol/L BUN 19 (9-20) mg/dL Creatinine 1.08 (0.7-1.3) mg/dL Estim Creat Clear Calc 71 ml/min Estimated GFR > 60 (59 - ) Glucose 105 (65-110) mg/dL Calcium 9.5 (8.4-10.2) mg/dL Urine Color Pending Urine Appearance Pending Urine pH Pending Ur Specific Gerlach Pending Urine Protein Pending Urine Glucose (UA) Pending Urine Ketones Pending Ur Blood (Man) Pending Urine Nitrate Pending Urine Bilirubin Pending Urine Urobilinogen Pending Leukocyte Esterase Rfl Pending <Rosy Ling PA-C - Last Filed: 10/31/24 12:59> Lab Results 10/31/24 10/31/24 Range/Units 13:00 15:21 WBC 11.5 H (4.5-10.0) K/mm3 RBC 4.48 L (4.6-6.20) M/mm3 Hgb 14.3 (14.0-18.0) g/dL Hct 42.0 (42.0-52.0) % MCV 93.8 (80-100) fl MCH 31.9 (26-34) pg MCHC 34.0 (32-36) g/dl RDW 13.2 (11.5-14.5) % Plt Count 233 (150-375) k/mm3 MPV 10.7 H (7.4-10.4) fl Immature Gran % (Auto) 0.7 H (0-0.5) % Neut % (Auto) 75.3 H (45.5-73.1) % Lymph % (Auto) 12.5 L (18.3-44.2) % [place] % (Auto) 10.1 H (2.6-8.5) % Eos % (Auto) 1.0 (0-4.4) % Baso % (Auto) 0.4 (0.2-1.2) % Lymph # (Auto) 1.43 (0.9-3.2) K/mm3 [place] # (Auto) 1.2 H (0.1-0.6) K/mm3 Eos # (Auto) 0.1 (0-0.3) K/mm3 Baso # (Auto) 0.1 (0.0-0.1) K/mm3 Abs Immat Gran (auto) 0.08 H (0.00-0.031) K/mm3 Absolute Neuts (auto) 8.6 H (1.3-6.7) K/mm3 Absolute Nucleated RBC 0.000 (0.0-0.012) K/mm3 Nucleated RBC % 0.0 (0.0-0.2) % Sodium 138 (137-145) mmol/L Potassium 4.0 (3.4-5.0) mmol/L Chloride 104 (98-107) mmol/L Carbon Dioxide 19 L (22-30) mmol/L Anion Gap 15 H (4-12) mmol/L BUN 19 (9-20) mg/dL Creatinine 1.08 (0.7-1.3) mg/dL Estim Creat Clear Calc 71 ml/min Estimated GFR > 60 (59 - ) Glucose 105 (65-110) mg/dL Calcium 9.5 (8.4-10.2) mg/dL Urine Color Pending Urine Appearance Pending Urine pH Pending Ur Specific Gerlach Pending Urine Protein Pending Urine Glucose (UA) Pending Urine Ketones Pending Ur Blood (Man) Pending Urine Nitrate Pending Urine Bilirubin Pending Urine Urobilinogen Pending Leukocyte Esterase Rfl Pending <Anshu P. Lipsmeyer, MD - Last Filed: 10/31/24 15:37> Critical Care Time Critical Care Time Critical Care Time: Yes <Anshu Nunez MD - Last Filed: 10/31/24 15:37> Total Critical Care Time: 35 <Anshu Nunez MD - Last Filed: 10/31/24 15:37> Discharge Plan Discharge Clinical Impression: Testicular torsion <Rosy Ling PA-C - Last Filed: 10/31/24 12:59> Patient Disposition: Still a Patient <TAIWO Fu Last Filed: 10/31/24 12:59> Condition: Stable <Rosy Ling PA-C - Last Filed: 10/31/24 12:59> Patient Language: Luxembourgish <Rosy Ling PA-C - Last Filed: 10/31/24 12:59> Prescriptions: No Action amlodipine 5 mg tablet See Rx Instructions .ROUTE .COMPLEX Qty: 100 3RF Dose Instruction: TAKE 1 TABLET BY MOUTH EVERY DAY Rx Instructions: TAKE 1 TABLET BY MOUTH EVERY DAY losartan 100 mg tablet See Rx Instructions .ROUTE .COMPLEX Qty: 90 4RF Dose Instruction: TAKE 1 TABLET BY MOUTH EVERY DAY Rx Instructions: TAKE 1 TABLET BY MOUTH EVERY DAY dicyclomine 20 mg tablet 20 mg PO QID Qty: 20 0RF metoprolol succinate 50 mg tablet extended release 24 hr See Rx Instructions .ROUTE .COMPLEX Qty: 90 1RF Dose Instruction: TAKE 1 TABLET BY MOUTH EVERY DAY Rx Instructions: TAKE 1 TABLET BY MOUTH EVERY DAY rosuvastatin 10 mg tablet See Rx Instructions .ROUTE .COMPLEX Qty: 90 1RF Dose Instruction: TAKE 1 TABLET BY MOUTH EVERY DAY Rx Instructions: TAKE 1 TABLET BY MOUTH EVERY DAY <Rosy Ling PA-C - Last Filed: 10/31/24 12:59> Follow-up/Referrals: Angelo Palmer MD [Primary Care Provider] - <TAIWO Fu Last Filed: 10/31/24 12:59>
[2024-10-31 13:30] LABS: Basophils Absolute Auto 0.1 K/mm3 (0.0-0.1); Basophils Percent Auto 0.4 % (0.2-1.2); Eosinophils Absolute Auto 0.1 K/mm3 (0-0.3); Hemoglobin 14.3 g/dL (14.0-18.0); Immature Granulocyte Absolute 0.08 K/mm3 (0.00-0.031); Immature Granulocyte Percent A 0.7 % (0-0.5); Lymphocytes Absolute Auto 1.43 K/mm3 (0.9-3.2); Lymphocytes Percent Auto 12.5 % (18.3-44.2); Mean Corpuscular Hemoglobin 31.9 pg (26-34); Mean Corpuscular Volume 93.8 fl (80-100); Mean Platelet Volume 10.7 fl (7.4-10.4); Monocytes Absolute Auto 1.2 K/mm3 (0.1-0.6); Monocytes Percent Auto 10.1 % (2.6-8.5); Neutrophils Absolute Auto 8.6 K/mm3 (1.3-6.7); Neutrophils Percent Auto 75.3 % (45.5-73.1); Platelet Count Result 233 k/mm3 (150-375); Red Blood Count 4.48 M/mm3 (4.6-6.20); Red Cell Distribution Width 13.2 % (11.5-14.5); White Blood Count 11.5 K/mm3 (4.5-10.0)
[2024-10-31 13:46] LABS: Anion Gap 15 mmol/L (4-12); Blood Urea Nitrogen 19 mg/dL (9-20); Calcium 9.5 mg/dL (8.4-10.2); Carbon Dioxide 19 mmol/L (22-30); Chloride 104 mmol/L (98-107); Estimated CRCL calculation 71 ml/min; Estimated Glomerular Filt Rate > 60; Glucose 105 mg/dL (65-110); Sodium 138 mmol/L (137-145)
--- OUTSIDE RECORDS SUMMARY | 2024-10-31 15:01 | XMS_ITS | Patient Health Summary ---
Author Organization [facility] Address [address] [place] [address] Care Team Providers Care Sleeve Presser Operator Name Role Phone Unavailable Primary Care Provider Unavailabl e Note from [facility],non-owned Affiliates and Associated Physician Practices is amultiple site organization consisting of ambulatory clinics and hospital sitesin [place], [place], [place] and [place]. This disclosure is being madepursuant to the Care Everywhere program and may not contain all information available regarding this patient. Last updated 18.[facility] Social History Tobacco Use Types Packs/Day Years [...] AM CDT) Case Report Dermatopathology Report Case: [id number] Authorizing Provider: Harris Hopkins MD Collected: 05/14/2024 03:33 AM Ordering Location: [facility] - Received: 05/15/2024 11:02 [...] of a non-oriented ellipse of skin measuring [id number] mm. The epidermal surface is unremarkable. The [...] determined by the Dermatopathology Laboratory at [facility], directed by Dr. Geoffrey Sosa. These tests need not be, and therefore are not, approved by the [place] Food and Drug Administration. The tests are used for clinical purposes. Billing Codes Specimen Charges Stain Charges 15571 1 4 2:50 PM CDT DERMATOPATHOLOGY LABORATORY Embedded Images 2:50 PM CDT DERMATOPATHOLOGY LABORATORY Pathology/Cytolo gy TISSUE SPECIMEN FROM SKIN / Unknown 05/14/2024 3:33 AM CDT 05/15/2024 11:02 AM CDT Harris Hopkins MD LAB - PATHOLOGY/CYTO LOGY ORDERABLES DERMATOPATHOLOGY LABORATORY [facility] - Department of Dermatology [address], [address] [phone]
--- OUTSIDE RECORDS SUMMARY | 2024-10-31 15:01 | XMS_ITS | Clinical Summary ---
Author Organization [facility] Address [address] [place] [address] Care Team Providers Care Cafe Attendant Name Role Phone Unavailable Primary Care Provider Unavailabl e Source Comments [facility],non-owned Affiliates and Associated Physician Practices is amultiple site organization consisting of ambulatory clinics and hospital sitesin [place] and [place]. This disclosure is being madepursuant to the Care Everywhere program and may not contain all information available regarding this patient. Last updated 18.[facility] Social History Tobacco Use Types Packs/Day Years [...]
--- OUTSIDE RECORDS SUMMARY | 2024-10-31 15:01 | XMS_ITS | Encounter Summary ---
Author Organization [facility] Address [address] [place] [address] Care Team Providers Care Lens Grinder Name Role Phone Unavailable Primary Care Provider Unavailabl e Encounter Details Date Type Department Care Team (Late st Contact Info) Description 05/14/2024 Lab Requisition [facility] - DermPath Lab [address] [place] [id number] Harris Hopkins MD [facility] DERMATOLOGY [address] [place] [phone] Basal cell carcinoma of skin of [...] AM CDT) Case Report Dermatopathology Report Case: [id number] Authorizing Provider: Harris Hopkins MD Collected: 05/14/2024 03:33 AM Ordering Location: [facility] - Received: 05/15/2024 11:02 AM DermPath Lab [...] of a non-oriented ellipse of skin measuring [id number] mm. The epidermal surface is unremarkable. The [...] characteristic determined by the Dermatopathology Laboratory at [facility], directed by Dr. Geoffrey Sosa. These tests need not be, and therefore are not, approved by the [place] Food and Drug Administration. The tests are used for clinical purposes. Billing Codes Specimen Charges Stain Charges 42040 1 2:50 PM CDT DERMATOPATHOLOGY LABORATORY Embedded Images 2:50 PM CDT DERMATOPATHOLOGY LABORATORY Pathology/Cytolo gy TISSUE SPECIMEN FROM SKIN / Unknown 05/14/2024 3:33 AM CDT 05/15/2024 11:02 AM CDT Harris Hopkins MD LAB - PATHOLOGY/CYTO LOGY ORDERABLES DERMATOPATHOLOGY LABORATORY [facility] - Department of Dermatology [address] [phone] documented in this encounter Visit Diagnoses Diagnosis Basal cell carcinoma of skin of left lower limb, including hip Basal cell carcinoma of skin of lower limb, including hip documented in this encounter
--- OUTSIDE RECORDS SUMMARY | 2024-10-31 15:01 | XMS_ITS | Referral Summary ---
Author Organization [facility] Address [address] [place] [address] Care Team Providers Care Dairy Nutrition Specialist Name Role Phone Unavailable Primary Care Provider Unavailabl e Source Comments [facility],non-owned Affiliates and Associated Physician Practices is amultiple site organization consisting of ambulatory clinics and hospital sitesin [place], [place], [place] and [place]. This disclosure is being madepursuant to the Care Everywhere program and may not contain all information available regarding this patient. Last updated 18.[facility] [employer] Social History Tobacco Use Types Packs/Day Years Used Date Smoking Tobacco: Never Assessed Sex and Gender Information Value Date Recorded Sex Assigned at Not on file Gender Identity Not on file Sexual Orientation Not on file Plan of Treatment Not on file
--- NOTE | 2024-10-31 15:32 | P.HP_ITS ---
H&P: HPI History of Present Illness Date/Time: 10/31/24 15:32 Chief Complaint: Scrotal Swelling Narrative: 74 y/o M presents here with intermittent groin pain and testicular swelling with PMH of malignant melanoma s/p excision, hyperlipidemia, and hypertension. The patient presents here from his PCP office for further evaluation of groin pain (right sided) and intermittent swelling to his testicular region. He reports the intermittent pain to his groin started around 10/26. He was seen in the ED that same day (10/26) and had a CT of the abdomen/pelvis performed. This showed supraumbilical ventral hernias containing fat. He reports he did have minor swelling to his scrotum and groin at that time, however it significantly worsened on Monday (10/27). He describes the pain in his testicles as sharp, inte rmittent radiation down his legs, intermittent, duration varies (seconds to minutes), aggravated by certain positions/sitting to standing etc., and alleviated by rest/holding still. He is also reporting accompanying lightheadedness and difficulty urinating. He denies fever, chills, body aches, nausea, vomiting, hematuria, or diarrhea. Reports daily ETOH use 4-5 half beer/half bourbon. Denies N/V/tremors with cessation. Initial VS at presentation: 98.1? F, HR 67, R 16, 130/48, and 98% on RA. ED workup showed: WBC 11.5, no anemia, creatinine 1.08 and normal GFR, UA pending. CT of the abdomen/pelvis showed torsion of the right spermatic cord, heterogeneous attenuation of the right testis consistent with infarct. Scrotum ultrasound showed enlarged and edematous right testis and epididymis with no evident vascular flow on color Doppler consistent with right testicular torsion. Review of Systems Review of Systems: All systems reviewed & are unremarkable except as noted in HPI and below [facility] Past Medical History Medical History (Updated 10/31/24 @ 16:43 by Su Charles APRN) Arthritis Atherosclerosis of abdominal aorta Hyperlipidemia H/O Malignant melanoma Trochanteric bursitis L hip Alcohol abuse Lumbar spondylosis Arthritis of spine Elevated PSA Melanoma Benign essential HTN Peritonitis Herniated disc Surgical History Surgical History Hx of ileostomy H/O melanoma excision chest and back History of reversal of ileostomy History of cholecystectomy Family History Family History Father Hypertension Social History Social History Social History: Smoking status: Never smoker Second hand tobacco smoke exposure: No Alcohol intake: current Drinks per week: 28 Alcohol use details: Pt drinks 4 alcoholic drinks a day. Substance use: never Substance use type: does not use Do You Feel Safe in your Home?: Yes Lack of Transportation: No Lack of Food: Never True Current Housing: I Have Housing Concerned About Future Housing: No Difficulty Paying Gas/Electric Bills: No Difficulty Paying for Meds: No Currently Unemployed: YES Education: Don't Know Difficulty w/ Childcare or Family Care: No Living arrangements: with family Occupation/Education: retired Gender identity (if verbalized by the patient): Male Sexual Orientation (if Verbalized by the Patient): Straight or Heterosexual Meds Home Medications and Allergies Home Medications ?Medication ?Instructions ?Recorded ?Confirmed ?Type amlodipine 5 mg tablet See Rx Instructions .Route 12/12/23 10/31/24 Rx .COMPLEX #100 tabs losartan 100 mg tablet See Rx Instructions .Route 12/12/23 10/31/24 Rx .COMPLEX #90 tabs metoprolol succinate 50 mg See Rx Instructions .Route 06/14/24 10/31/24 Rx tablet,extended release 24 hr .COMPLEX #90 tabs rosuvastatin 10 mg tablet See Rx Instructions .Route 08/09/24 10/31/24 Rx .COMPLEX #90 tabs dicyclomine 20 mg tablet 20 mg PO QID #20 tabs 10/26/24 10/31/24 Rx Allergies Allergy/AdvReac Type Severity Reaction Status Date / Time No Known Allergies Allergy Mild Verified 10/31/24 16:08 Vital Signs Vital Signs - 24 hr 10/31/24 12:42 Temperature 98.1 F Pulse Rate 67 Respiratory Rate 16 Blood Pressure 130/48 L Pulse Oximetry 98 Oxygen Delivery Room Air Exam Const: General: comfortable and no acute distress Other: , male, nontoxic appearance HENMT: Face/Nose/Sinus: Normal nares present Mouth: Yes moist mucous membranes Eyes: General: appearance normal, both eyes and all related structures Sclera: sclerae normal Pupils: Equal, round and reactive pupils present EOM: EOMs intact bilaterally Resp: Effort & Inspection: normal respiratory effort Auscultation: clear to auscultation bilaterally Cardio: Rate: regular rate Rhythm: regular rhythm Other: S1-S2 present without murmur, rub, ectopy GI: Other: Abdomen rounded, soft. Tender in the lower quadrants. Normoactive bowel sounds in all quadrants. : Other: No erythema to penis. Erythema and significant edema to scrotum bilaterally with extension of erythema to the suprapubic region. Scrotum very tender to the touch. Skin: General skin exam: normal color Wounds: no wounds Other: Erythema to scrotum with extension to the suprapubic region. Neuro: Speech: normal speech Motor exam (neuro): 5/5 motor strength present throughout Sensory Exam: normal sensation Other: A&O x4 Extrem: General: normal to inspection Psych: Mental Status: mental status grossly normal Affect: normal affect Other: Good insight and judgment, pleasant H&P: Results Labs Labs: Short CBC 10/31/24 Range/Units 13:00 WBC 11.5 H (4.5-10.0) K/mm3 Hgb 14.3 (14.0-18.0) g/dL Hct 42.0 (42.0-52.0) % Plt Count 233 (150-375) k/mm3 BMP 10/31/24 13:00 Sodium 138 Potassium 4.0 Chloride 104 Carbon Dioxide 19 L BUN 19 Creatinine 1.08 Glucose 105 Calcium 9.5 Assessment and Plan Assessment and plan (1) Right testicular torsion: Code(s): N44.00 - Torsion of testis, unspecified Status: Acute Assessment and Plan: - CT abd/pelvis: 1. Torsion of the right spermatic cord. Heterogeneous attenuation of the right testis, consistent with infarct. I called this result to Rosy Ling. - US scrotum: 1. Enlarged and edematous RIGHT testis and epididymis with no evident vascular flow on color Doppler consistent with RIGHT testicular torsion. The ED physician Dr. Ling has been notified of these findings by Dr. Menard. - Urology consulted, Celestine ESTRADA provided the following recs: Given length of time of symptoms and scrotal ultrasound, testicle may be infarcted Plan for scrotal exploration and possible right orchiopexy, more likely right orchiectomy today - started on Ancef on 10/31 - analgesics and antipyretics p.r.n. (2) Alcohol abuse: Code(s): F10.10 - Alcohol abuse, uncomplicated Status: Acute Assessment and Plan: - 4-5 drinks daily - denies w/d symptoms with cessation - monitor (3) Benign essential HTN: Code(s): I10 - Essential (primary) hypertension Status: Acute Assessment and Plan: - chronic, currently 130/68 - continue home medications: amlodipine, losartan, metoprolol - monitor Plan Diet: NPO, heart healthy postop GI Prophylaxis: Not currently indicated DVT Prophylaxis: SCDs Lines: Peripheral Code Status: Full code Quality VTE Prophylaxis VTE prophylaxis: mechanical ordered Hospitalist MIPS Advance Care Plan I have confirmed that the patient's Advanced Care Plan is present, code status is documented, or surrogate decision maker is listed in patient medical record.: Yes Medication Reconciliation I have utilized all available resources to obtain, update and review the patients current medications (includes all prescriptions, OTC, herbals, cannabis, and nutritional supplements).: Yes
[2024-10-31 15:33] LABS: Add Urine Microscopic? YES; Appearance Urine Clear (Clear); Bacteria Urine None Seen /hpf; Bilirubin Urine Negative (Negative); Blood Urine Trace (Negative); Color Urine Dark Yellow (Yellow); Glucose Urine UA Negative (Negative); Ketones Urine 1+ mg/dL (Negative); Leukocyte Esterase Ur Negative LEU/UL (Negative); Nitrate Urine Negative (Negative); Non Pathogenic Casts 0-2; Protein Urine Negative (Negative); Specific Grav Ur 1.022 (1.001-1.035); Squamous Epithelial Cell Urine None Seen /hpf (Few); WBC Urine 0-5 /hpf (0-3); pH Urine 5.5 (5.0-9.0)
--- OUTSIDE RECORDS SUMMARY | 2024-10-31 15:41 | XMS_ITS | Referral Summary ---
Author Organization [facility] Address [address] [place] [address] Care Team Providers Care Laundry Tub Maker Name Role Phone Unavailable Primary Care Provider Unavailabl e Source Comments [facility],non-owned Affiliates and Associated Physician Practices is amultiple site organization consisting of ambulatory clinics and hospital sitesin [place], [place], [place] and [place]. This disclosure is being madepursuant to the Care Everywhere program and may not contain all information available regarding this patient. Last updated 18.[facility] Social History Tobacco Use Types Packs/Day Years Used Date Smoking Tobacco: Never Assessed Sex and Gender Information Value Date Recorded Sex Assigned at Not on file Gender Identity Not on file Sexual Orientation Not on file Plan of Treatment Not on file
--- OUTSIDE RECORDS SUMMARY | 2024-10-31 15:41 | XMS_ITS | Clinical Summary ---
Author Organization [facility] Address [address] [place] [address] Care Team Providers Care Cut And Cover Line Worker Name Role Phone Unavailable Primary Care Provider Unavailabl e Source Comments [facility],non-owned Affiliates and Associated Physician Practices is amultiple site organization consisting of ambulatory clinics and hospital sitesin [place], [place], [place] and [place]. This disclosure is being madepursuant to the Care Everywhere program and may not contain all information available regarding this patient. Last updated 18.[facility] Social History Tobacco Use Types Packs/Day Years [...]
--- OUTSIDE RECORDS SUMMARY | 2024-10-31 15:41 | XMS_ITS | Encounter Summary ---
Author Organization [facility] Address [address] [place] [address] Care Team Providers Care Collar Starcher Name Role Phone Unavailable Primary Care Provider Unavailabl e Encounter Details Date Type Department Care Team (Late st Contact Info) Description 05/14/2024 Lab Requisition [facility] - DermPath Lab [address] [place] [id number] Harris Hopkins MD [facility] [address] [place] [phone] Basal cell carcinoma of skin of [...] AM CDT) Case Report Dermatopathology Report Case: [id number] Authorizing Provider: Harris Hopkins MD Collected: 05/14/2024 03:33 AM Ordering Location: [facility] Physician [facility] - Received: 05/15/2024 11:02 AM DermPath [...] of a non-oriented ellipse of skin measuring [id number] mm. The epidermal surface is unremarkable. The [...] characteristic determined by the Dermatopathology Laboratory at [facility], directed by Dr. Geoffrey Sosa. These tests need not be, and therefore are not, approved by the [place] Food and Drug Administration. The tests are used for clinical purposes. Billing Codes Specimen Charges Stain Charges 65764 1 2:50 PM CDT DERMATOPATHOLOGY LABORATORY Embedded Images 2:50 PM CDT DERMATOPATHOLOGY LABORATORY Pathology/Cytolo gy TISSUE SPECIMEN FROM SKIN / Unknown 05/14/2024 3:33 AM CDT 05/15/2024 11:02 AM CDT Harris Hopkins MD LAB - PATHOLOGY/CYTO LOGY ORDERABLES DERMATOPATHOLOGY LABORATORY [facility] - Department of Dermatology [address], [address] [phone] documented in this encounter Visit Diagnoses Diagnosis Basal cell carcinoma of skin of left lower limb, including hip Basal cell carcinoma of skin of lower limb, including hip documented in this encounter
--- OUTSIDE RECORDS SUMMARY | 2024-10-31 15:41 | XMS_ITS | Patient Health Summary ---
Author Organization [facility] Address [address] [place] [address] Care Team Providers Care Business Objects Name Role Phone Unavailable Primary Care Provider Unavailabl e Note from [facility],non-owned Affiliates and Associated Physician Practices is amultiple site organization consisting of ambulatory clinics and hospital sitesin [place], [place], [place] and [place]. This disclosure is being madepursuant to the Care Everywhere program and may not contain all information available regarding this patient. Last updated 18.[facility] Social History Tobacco Use Types Packs/Day Years [...] AM CDT) Case Report Dermatopathology Report Case: [id number] Authorizing Provider: Harris Hopkins MD Collected: 05/14/2024 03:33 AM Ordering Location: [facility] - Received: 05/15/2024 [...] of a non-oriented ellipse of skin measuring [id number] mm. The epidermal surface is unremarkable. The [...] characteristic determined by the Dermatopathology Laboratory at [facility], directed by Dr. Geoffrey Sosa. These tests need not be, and therefore are not, approved by the [place] Food and Drug Administration. The tests are used for clinical purposes. Billing Codes Specimen Charges Stain Charges 57258 1 4 2:50 PM CDT DERMATOPATHOLOGY LABORATORY Embedded Images 2:50 PM CDT DERMATOPATHOLOGY LABORATORY Pathology/Cytolo gy TISSUE SPECIMEN FROM SKIN / Unknown 05/14/2024 3:33 AM CDT 05/15/2024 11:02 AM CDT Harris Hopkins MD LAB - PATHOLOGY/CYTO LOGY ORDERABLES DERMATOPATHOLOGY LABORATORY [facility] - Department of Dermatology [address], [address] [phone]
--- NOTE | 2024-10-31 16:19 | P.CONUR_ITS ---
Assessment and Plan Assessment and plan (1) Right testicular torsion: Code(s): N44.00 - Torsion of testis, unspecified Status: Acute Assessment and Plan: Given the findings of scrotal ultrasound the period of time that this is occurred patient is aware that he may have infarcted his testicle. Given the cellulitis present I have recommended to proceed with scrotal exploration with possible right orchiopexy but also pole most likely right orchiectomy. He understands and wishes to proceed. Urology Consult Note HPI Date Seen: 10/31/24 Time Seen: 15:30 Requesting Physician: Zach Sprague MD Primary Care Provider: Angelo Pamler MD Consult Narrative Reason for consult: Right testicular torsion Narrative: Sarath Simpson is a 74 year old male who was actually in the emergency room on 10/26/24 with some right lower quadrant discomfort. CT scan at that time had no specific findings. He then came back to the emergency room today with persistent right lower quadrant discomfort and some discomfort in his right hemiscrotum. Ultrasound CT reveals a twisted spermatic cord on CT and then an ultrasound with no flow to that testicle. There is some cellulitis appearance around the scrotal skin. He denied any fevers. Patient denies any real significant testicular pain at this time. Review of Systems 2 Review of Systems: All systems reviewed & are unremarkable except as noted in HPI and below PMFSH Past Medical History Medical History H/O Malignant melanoma Trochanteric bursitis L hip Atherosclerosis of abdominal aorta Alcohol abuse Lumbar spondylosis Arthritis of spine Elevated PSA Melanoma Hyperlipidemia Benign essential HTN Peritonitis Herniated disc Surgical History Surgical History Hx of ileostomy H/O melanoma excision chest and back History of reversal of ileostomy History of cholecystectomy Family History Family History Father Hypertension Social History Social History Social History: Smoking status: Never smoker Second hand tobacco smoke exposure: No Alcohol intake: current Drinks per week: 28 Alcohol use details: Pt drinks 4 alcoholic drinks a day. Substance use: never Substance use type: does not use Do You Feel Safe in your Home?: Yes Lack of Transportation: No Lack of Food: Never True Current Housing: I Have Housing Concerned About Future Housing: No Difficulty Paying Gas/Electric Bills: No Difficulty Paying for Meds: No Currently Unemployed: YES Education: Don't Know Difficulty w/ Childcare or Family Care: No Living arrangements: with family Occupation/Education: retired Gender identity (if verbalized by the patient): Male Sexual Orientation (if Verbalized by the Patient): Straight or Heterosexual Meds Home Medications and Allergies Home Medications ?Medication ?Instructions ?Recorded ?Confirmed ?Type amlodipine 5 mg tablet See Rx Instructions .Route 12/12/23 10/31/24 Rx .COMPLEX #100 tabs losartan 100 mg tablet See Rx Instructions .Route 12/12/23 10/31/24 Rx .COMPLEX #90 tabs metoprolol succinate 50 mg See Rx Instructions .Route 06/14/24 10/31/24 Rx tablet,extended release 24 hr .COMPLEX #90 tabs rosuvastatin 10 mg tablet See Rx Instructions .Route 08/09/24 10/31/24 Rx .COMPLEX #90 tabs dicyclomine 20 mg tablet 20 mg PO QID #20 tabs 10/26/24 10/31/24 Rx Allergies Allergy/AdvReac Type Severity Reaction Status Date / Time No Known Allergies Allergy Mild Verified 10/31/24 16:08 Vital Signs Vital Signs - 24 hr 10/31/24 12:42 10/31/24 15:47 10/31/24 15:55 Temperature 36.7 C 36.3 C L Pulse Rate 67 71 76 Respiratory Rate 16 16 16 Blood Pressure 130/48 L 130/74 130/68 Pulse Oximetry 98 100 99 Oxygen Delivery Room Air Room Air Exam 2 Const: General: cooperative and comfortable Resp: Effort & Inspection: normal respiratory effort Cardio: Rate: regular rate Rhythm: regular rhythm : Scrotum: edematous Testes: testicular swelling Results Labs 10/31/24 13:00 10/31/24 13:00 Labs: Short CBC 10/31/24 Range/Units 13:00 WBC 11.5 H (4.5-10.0) K/mm3 Hgb 14.3 (14.0-18.0) g/dL Hct 42.0 (42.0-52.0) % Plt Count 233 (150-375) k/mm3 BMP 10/31/24 13:00 Sodium 138 Potassium 4.0 Chloride 104 Carbon Dioxide 19 L BUN 19 Creatinine 1.08 Glucose 105 Calcium 9.5 Urine 10/31/24 Range/Units 15:21 Urine Color Dark yellow (Yellow) Urine Appearance Clear (Clear) Urine pH 5.5 (5.0-9.0) Ur Specific [place] 1.022 (1.001-1.035) Urine Protein Negative (Negative) mg/dL Urine Glucose (UA) Negative (Negative) mg/dL
--- NOTE | 2024-10-31 16:24 | WPDHPUPDATE1 ---
History and Physical Update Update Date/Time: 10/31/24 16:24 History and Physical has been reviewed, including an updated exam of the patient. There are NO changes in the patient's condition. Risks, benefits, and alternatives have been discussed and questions answered. Patient agrees to proceed with procedure. Proceed with scrotal exploration and possible right orchiopexy possible right orchiectomy
--- NOTE | 2024-10-31 16:38 | WPDANESEPPF ---
Anes - Initial Pre Proc Eval Procedure: Operation Date: 10/31/24 16:30 Proposed Procedures p Scrotal Exploration, Right Orchiopexy, Possible Right Orchiectomy - Zach Sprague MD Date/Time: 10/31/24 16:38 Surgeon: Zach Sprague MD Pre Op Diagnosis: groin pain Patient Data Age: 74 Gender: M Height: 1.88 m Weight: 109.6 kg Last Vital Signs Temp 36.3 C L 10/31/24 15:55 Pulse 76 10/31/24 15:55 Resp 16 10/31/24 15:55 BP 130/68 10/31/24 15:55 Pulse Ox 99 10/31/24 15:55 O2 Del Method Room Air 10/31/24 15:55 Allergies Allergy/AdvReac Type Severity Reaction Status Date / Time No Known Allergies Allergy Mild Verified 10/31/24 16:08 Home Medications ?Medication ?Instructions ?Recorded ?Confirmed ?Type amlodipine 5 mg tablet See Rx Instructions .Route 12/12/23 10/31/24 Rx .COMPLEX #100 tabs losartan 100 mg tablet See Rx Instructions .Route 12/12/23 10/31/24 Rx .COMPLEX #90 tabs metoprolol succinate 50 mg See Rx Instructions .Route 06/14/24 10/31/24 Rx tablet,extended release 24 hr .COMPLEX #90 tabs rosuvastatin 10 mg tablet See Rx Instructions .Route 08/09/24 10/31/24 Rx .COMPLEX #90 tabs dicyclomine 20 mg tablet 20 mg PO QID #20 tabs 10/26/24 10/31/24 Rx Laboratory Tests 10/31/24 10/31/24 13:00 15:21 WBC 11.5 H K/mm3 (4.5-10.0) RBC 4.48 L M/mm3 (4.6-6.20) Hgb 14.3 g/dL (14.0-18.0) Hct 42.0 % (42.0-52.0) MCV 93.8 fl (80-100) MCH 31.9 pg (26-34) MCHC 34.0 g/dl (32-36) RDW 13.2 % (11.5-14.5) Plt Count 233 k/mm3 (150-375) MPV 10.7 H fl (7.4-10.4) Immature Gran % (Auto) 0.7 H % (0-0.5) Neut % (Auto) 75.3 H % (45.5-73.1) Lymph % (Auto) 12.5 L % (18.3-44.2) [place] % (Auto) 10.1 H % (2.6-8.5) Eos % (Auto) 1.0 % (0-4.4) Baso % (Auto) 0.4 % (0.2-1.2) Lymph # (Auto) 1.43 K/mm3 (0.9-3.2) [place] # (Auto) 1.2 H K/mm3 (0.1-0.6) Eos # (Auto) 0.1 K/mm3 (0-0.3) Baso # (Auto) 0.1 K/mm3 (0.0-0.1) Abs Immat Gran (auto) 0.08 H K/mm3 (0.00-0.031) Absolute Neuts (auto) 8.6 H K/mm3 (1.3-6.7) Absolute Nucleated RBC 0.000 K/mm3 (0.0-0.012) Nucleated RBC % 0.0 % (0.0-0.2) Sodium 138 mmol/L (137-145) Potassium 4.0 mmol/L (3.4-5.0) Chloride 104 mmol/L (98-107) Carbon Dioxide 19 L mmol/L (22-30) Anion Gap 15 H mmol/L (4-12) BUN 19 mg/dL (9-20) Creatinine 1.08 mg/dL (0.7-1.3) Estim Creat Clear Calc 71 ml/min Estimated GFR > 60 (59 - ) Glucose 105 mg/dL (65-110) Calcium 9.5 mg/dL (8.4-10.2) Urine Color Dark yellow (Yellow) Urine Appearance Clear (Clear) Urine pH 5.5 (5.0-9.0) Ur Specific [place] 1.022 (1.001-1.035) Urine Protein Negative mg/dL (Negative) Urine Glucose (UA) Negative mg/dL (Negative) Urine Ketones 1+ H mg/dL (Negative) Ur Blood (Man) Trace (Negative) Urine Nitrate Negative (Negative) Urine Bilirubin Negative (Negative) Urine Urobilinogen 1.0 mg/dL (<2.0) Leukocyte Esterase Rfl Negative JAYJAY/UL (Negative) Urine RBC 3-5 H /hpf (0-2) Urine WBC 0-5 /hpf (0-3) Ur Squamous Epith Cells None seen /hpf (Few) Urine Bacteria None seen /hpf Urine Casts 0-2 Patient hx anesthesia problems: none Family hx anesthesia problems: none Results Review: All pre-operative results and documents have been reviewed as part of the pre-operative evaluation. [facility] Past Medical History Medical History H/O Malignant melanoma Trochanteric bursitis L hip Atherosclerosis of abdominal aorta Alcohol abuse Lumbar spondylosis Arthritis of spine Elevated PSA Melanoma Hyperlipidemia Benign essential HTN Peritonitis Herniated disc Surgical History Surgical History Hx of ileostomy H/O melanoma excision chest and back History of reversal of ileostomy History of cholecystectomy Family History Family History Father Hypertension Social History Social History Social History: Smoking status: Never smoker Second hand tobacco smoke exposure: No Alcohol intake: current Drinks per week: 28 Alcohol use details: Pt drinks 4 alcoholic drinks a day. Substance use: never Substance use type: does not use Do You Feel Safe in your Home?: Yes Lack of Transportation: No Lack of Food: Never True Current Housing: I Have Housing Concerned About Future Housing: No Difficulty Paying Gas/Electric Bills: No Difficulty Paying for Meds: No Currently Unemployed: YES Education: Don't Know Difficulty w/ Childcare or Family Care: No Living arrangements: with family Occupation/Education: retired Gender identity (if verbalized by the patient): Male Sexual Orientation (if Verbalized by the Patient): Straight or Heterosexual Anes - Eval Final PreProcedure Day of Procedure 10/31/24 16:38 Patient weight: obese Heart: regular rate and rhythm Lungs: clear to auscultation Airway: Mallampati scale class II Neurological: alert and oriented Last oral intake: >/= 8 hours ASA classification: III Emergent: no Anesthetic plan: proceed Anesthesia type and monitoring: general LMA and standard monitoring Results Review: All pre-operative results and documents have been reviewed as part of the pre-operative evaluation. Informed Consent: The patient's anesthetic plan and its attendant risks and benefits were discussed with the patient/family/POA. Questions were solicited and answers provided to the satisfaction of the patient/family/POA.
[2024-10-31] MEDS: LACTATED RINGERS 1,000 ML 30 ML IV CONT (16:40)
[2024-10-31] MEDS: ceFAZolin 2 GM/D5W 50 ML 2 GM/50 ML BAG IVPB (17:02)
[2024-10-31] MEDS: BUPivacaine HCL 0.25% PF 30 ML VIAL INFILTRATE (17:19)
--- NOTE | 2024-10-31 17:36 | W.PM.PROC2 ---
Procedure Note - Detailed Date of Procedure 10/31/24 Pre-op Diagnosis Right testicular torsion with infarct Post-op Diagnosis Same Procedure Performed Scrotal exploration with right orchiectomy Surgeon Zach Sprague MD Anesthesia General Findings Infarcted testicle with twisted spermatic cord Description of Procedure Patient was taken to the operative suite correctly identified. Once anesthesia was obtained was placed in the supine position prepped draped usual sterile fashion. Trans scrotal incision was made. Soon as we entered the scrotal cavity it was extremely noticeable that the testicle was infarcted. The cord had been twisted twice. We untwisted the cord but the testicle had already been infarcted. At this point time we did an orchiectomy. The vessels and the vas were taken separately. 0 Prolene were used to ligate the structures. There was no evidence of purulence at this time. Quarter-inch Ayla drain was then placed through a separate stab incision and secured using 3-0 chromic. The wound was closed in 2 layers using 3-0 chromic. Skin was with 3-0 chromic in a running fashion. Skin was anesthetized with 0.25% Marcaine. Patient is taken recovery stable condition. This completes dictation. Please send a copy of op note to my office. Estimated Blood Loss 10 Drains Yes Packing No Pathology Yes Complications No immediate complications Condition Stable Disposition PACU
--- NOTE | 2024-10-31 19:04 | PC.NURSE ---
This patient, Sarath Simpson, was received from [PACU] on 10/31/24 at 1900. Patient/family oriented to unit policies and routines. Report from Ceci.
[2024-10-31] MEDS: DICYCLOMINE HCL 10 MG CAPSULE 20 MG PO (21:13)
[2024-10-31] MEDS: ceFAZolin 1 GM/NS 50 ML 1 GM/50 ML BAG IVPB (21:13)
[2024-10-31] MEDS: HYDROcodone/acetaminophen (*CRX) 5-325 MG TABLET 1 TAB PO (21:23)
[2024-11-01] VITALS: BP 151/64; PULSE 75; RESP 18; TEMP 35.9; O2SAT 100
--- NOTE | 2024-11-01 02:58 | ADMGEN ---
This patient, Sarath Simpson, was admitted to [facility] Surg Room 304-01. Patient/family oriented to hospital policies and general routines including ID bracelet, bed and alarms, visiting hours, pain management, procedures, bathroom and other care routines, personal items, smoking policy, room service/diet, and visiting hours. Information on how to activate the Rapid Response Team has been discussed. Patient/Family are encouraged to report perceived risks to care and to ask questions if they do not understand what they are told or what they should do.
[2024-11-01 05:00] VITALS: BP 130/71; PULSE 65; RESP 16; TEMP 36.4; O2SAT 98
[2024-11-01] MEDS: ceFAZolin 1 GM/NS 50 ML 1 GM/50 ML BAG IVPB ×2 (06:32→12:55)
[2024-11-01 08:00] VITALS: O2SAT 98
--- NOTE | 2024-11-01 08:20 | P.PNIM_ITS ---
Progress Note: A&P Assessment and Plan (1) Right testicular torsion: Code(s): N44.00 - Torsion of testis, unspecified Status: Acute Assessment and Plan: - CT abd/pelvis: 1. Torsion of the right spermatic cord. Heterogeneous attenuation of the right testis, consistent with infarct. I called this result to Rosy Ling. - US scrotum: 1. Enlarged and edematous RIGHT testis and epididymis with no evident vascular flow on color Doppler consistent with RIGHT testicular torsion. The ED physician Dr. Ling has been notified of these findings by Dr. Menard. - started on Ancef on 10/31 - analgesics and antipyretics p.r.n. - Urology consulted, Celestine ESTRADA provided the following recs: Given length of time of symptoms and scrotal ultrasound, testicle may be infarcted s/p Scrotal exploration with right orchiectomy on 10/[address] Sprague (2) Alcohol abuse: Code(s): F10.10 - Alcohol abuse, uncomplicated Status: Acute Assessment and Plan: - 4-5 drinks daily - denies w/d symptoms with cessation - monitor (3) Benign essential HTN: Code(s): I10 - Essential (primary) hypertension Status: Acute Assessment and Plan: - chronic - continue home medications: amlodipine, losartan, metoprolol - blood pressures remain stable, continue to monitor Plan Diet: NPO, heart healthy postop GI Prophylaxis: Not currently indicated DVT Prophylaxis: SCDs Lines: Peripheral Code Status: Full code Subjective Date/time seen: 11/01/24 08:20 Interval history: 74 y/o M presents here with intermittent groin pain and testicular swelling with PMH of malignant melanoma s/p excision, hyperlipidemia, and hypertension. Review of Systems Review of Systems: All systems reviewed & are unremarkable except as noted in HPI and below Exam Narrative: AF General: well nourished, well-developed male in no acute respiratory distress who is nontoxic appearing, lying semi recumbent in bed. HEENT: Normocephalic. Atraumatic. Pupils equal round reactive to light. Extraocular movement intact. Sclera clear and anicteric. Nares patent. No oral lesions. Moist mucous membranes. Tongue is midline. Palate donnie symmetrically. No facial asymmetry. Neck: Neck was supple. No dominant adenopathy, thyromegaly or masses. 2+ carotid upstrokes without bruits. Chest: Lungs are clear to auscultation bilaterlly. No wheezes or crackles. CV: Heart was regular rate and rhythm. S1/S2. No murmurs, gallops, or rubs. Abd: Abdomen was soft. Nontender. Nondistended. Postive bowel sounds. No organomegaly or masses. Ext: No clubbing, cyanosis, or edema. 2+ DP pulses bilaterally. Neuro: Patient is alert and oriented x4. Strenth is 5/5 in both upper and lower extremities. Cranial nerves 2-12 are intact. Speech is clear. Psych: Normal nood and affect. Patient is pleasant and cooperative. Skin: Warm and dry. No rashes noted. Objective Data Vital Signs Vital Signs: Vital Signs - 24 hr 10/31/24 12:42 10/31/24 15:47 10/31/24 15:55 Temperature 98.1 F 97.3 F L Pulse Rate 67 71 76 Respiratory Rate 16 16 16 Blood Pressure 130/48 L 130/74 130/68 Pulse Oximetry 98 100 99 Oxygen Delivery Room Air Room Air Oxygen Flow Rate 10/31/24 17:44 10/31/24 18:00 10/31/24 18:15 Temperature 99.1 F Pulse Rate 75 66 77 Respiratory Rate 16 14 12 Blood Pressure 132/67 130/67 131/73 Pulse Oximetry 99 99 99 Oxygen Delivery Simple Face Mask Simple Face Mask Room Air Oxygen Flow Rate 10 10 10/31/24 18:30 10/31/24 18:45 10/31/24 21:22 Temperature 97.3 F L Pulse Rate 69 70 71 Respiratory Rate 17 15 18 Blood Pressure 130/64 137/70 117/63 Pulse Oximetry 99 96 95 Oxygen Delivery Room Air Room Air Oxygen Flow Rate 11/01/24 00:00 11/01/24 05:00 11/01/24 08:00 Temperature 96.7 F L 97.5 F L Pulse Rate 75 65 Respiratory Rate 18 16 Blood Pressure 151/64 H 130/71 Pulse Oximetry 100 98 98 Oxygen Delivery Room Air Oxygen Flow Rate Intake/Output Intake/Output: Intake & Output 10/29/24 10/30/24 10/31/24 11/01/24 23:59 23:59 23:59 23:59 Intake Total 340 550 Balance 340 550 Meds/Results Medications: Active Medications Generic Name Dose Route Start Last Admin Trade Name Freq PRN Reason Stop Dose Admin Acetaminophen 650 mg 10/31/24 16:50 Acetaminophen 325 Mg Tablet PO Q6H PRN Mild Pain (1-3) or Fever Hydrocodone Bitart/Acetaminophen 1 tab 10/31/24 16:50 Hydrocodone/Acetaminophen (*Crx) 5-325 Mg Tablet PO Q6H PRN Pain Rated 4-6 Hydrocodone Bitart/Acetaminophen 1 tab 10/31/24 18:51 10/31/24 21:23 Hydrocodone/Acetaminophen (*Crx) 5-325 Mg Tablet PO 1 tab Q4H PRN Administration Pain Rated 4-6 Amlodipine Besylate 5 mg 11/01/24 09:00 Amlodipine Besylate 5 Mg Tablet BY MOUTH DAILY [facility] Dicyclomine HCl 20 mg 10/31/24 21:00 10/31/24 21:13 Dicyclomine Hcl 10 Mg Capsule PO 20 mg QID LINDA Administration Cefazolin Sodium 1 gm in 50 mls @ 100 mls/hr 10/31/24 22:00 11/01/24 06:32 Ancef 1 Gm/Ns 50 Ml IVPB 100 mls/hr Q8H LINDA Administration Losartan Potassium 100 mg 11/01/24 09:00 Losartan Potassium 100 Mg Tablet PO DAILY [facility] Metoprolol Succinate 50 mg 11/01/24 09:00 Metoprolol Succinate Ext Rel 50 Mg Tabcr PO DAILY [facility] Morphine Sulfate 2 mg 10/31/24 16:50 Morphine Sulfate (*Crx) 2 Mg/Ml Inj IV PUSH Q4H PRN Pain Rated 7-10 Rosuvastatin Calcium 10 mg 11/01/24 09:00 Rosuvastatin 10 Mg Tablet PO DAILY [facility] Radiology Results: ITS Impressions Abdomen/Pelvis CT 10/31/24 14:02 IMPRESSION: 1. Torsion of the right spermatic cord. Heterogeneous attenuation of the right testis, consistent with infarct. I called this result to Rosy Ling. Scrotum Ultrasound 10/31/24 14:05 IMPRESSION: 1. Enlarged and edematous left testis and epididymis with no evident vascular flow on color Doppler consistent with left testicular torsion. The ED physician Dr. Ling has been notified of these findings by Dr. Menard. ADDENDUM: 10/31/24 1443 CORRECTION: There is a dictation error in the impression section. With the correction capitalized this should read- 1. Enlarged and edematous RIGHT testis and epididymis with no evident vascular flow on color Doppler consistent with RIGHT testicular torsion. The ED physician Dr. Ling has been notified of these findings by Dr. Menard. Labs Labs: Laboratory Results - last 24 hr 10/31/24 10/31/24 13:00 15:21 WBC 11.5 H RBC 4.48 L Hgb 14.3 Hct 42.0 MCV 93.8 MCH 31.9 MCHC 34.0 RDW 13.2 Plt Count 233 MPV 10.7 H Immature Gran % (Auto) 0.7 H Neut % (Auto) 75.3 H Lymph % (Auto) 12.5 L [place] % (Auto) 10.1 H Eos % (Auto) 1.0 Baso % (Auto) 0.4 Lymph # (Auto) 1.43 [place] # (Auto) 1.2 H Eos # (Auto) 0.1 Baso # (Auto) 0.1 Abs Immat Gran (auto) 0.08 H Absolute Neuts (auto) 8.6 H Absolute Nucleated RBC 0.000 Nucleated RBC % 0.0 Sodium 138 Potassium 4.0 Chloride 104 Carbon Dioxide 19 L Anion Gap 15 H BUN 19 Creatinine 1.08 Estim Creat Clear Calc 71 Estimated GFR > 60 Glucose 105 Calcium 9.5 Urine Color Dark yellow Urine Appearance Clear Urine pH 5.5 Ur Specific [place] 1.022 Urine Protein Negative Urine Glucose (UA) Negative Urine Ketones 1+ H Ur Blood (Man) Trace Urine Nitrate Negative Urine Bilirubin Negative Urine Urobilinogen 1.0 Leukocyte Esterase Rfl Negative Urine RBC 3-5 H Urine WBC 0-5 Ur Squamous Epith Cells None seen Urine Bacteria None seen Urine Casts 0-2 Quality VTE Prophylaxis VTE prophylaxis: mechanical ordered
[2024-11-01 08:44] LABS: Hematocrit 37.5 % (42.0-52.0); Mean Corpuscular HGB Conc 34.7 g/dl (32-36); Mean Corpuscular Hemoglobin 32.6 pg (26-34); Platelet Count Result 211 k/mm3 (150-375); Red Blood Count 3.99 M/mm3 (4.6-6.20); Red Cell Distribution Width 12.8 % (11.5-14.5); White Blood Count 10.9 K/mm3 (4.5-10.0)
[2024-11-01 08:57] LABS: Alanine Aminotransferase 25 U/L (6-50); Alkaline Phosphatase 67 U/L (38-126); Anion Gap 12 mmol/L (4-12); Aspartate Amino Transferase 26 U/L (17-59); Bilirubin,Total 0.9 mg/dL (0.2-1.3); Blood Urea Nitrogen 18 mg/dL (9-20); Calcium 8.9 mg/dL (8.4-10.2); Carbon Dioxide 20 mmol/L (22-30); Chloride 105 mmol/L (98-107); Estimated CRCL calculation 87 ml/min; Estimated Glomerular Filt Rate > 60; Glucose 124 mg/dL (65-110); Potassium 4.3 mmol/L (3.4-5.0); Sodium 137 mmol/L (137-145)
[2024-11-01] MEDS: DICYCLOMINE HCL 10 MG CAPSULE 20 MG PO (09:13)
[2024-11-01] MEDS: LOSARTAN POTASSIUM 100 MG TABLET PO (09:13)
[2024-11-01] MEDS: HYDROcodone/acetaminophen (*CRX) 5-325 MG TABLET 1 TAB PO (09:15)
[2024-11-01] MEDS: amLODIPine BESYLATE 5 MG TABLET BY MOUTH (09:17)
[2024-11-01] MEDS: ROSUVASTATIN 10 MG TABLET PO (09:17)
[2024-11-01 09:18] VITALS: PULSE 82
[2024-11-01] MEDS: METOPROLOL SUCCINATE EXT REL 50 MG TABCR PO (09:18)
--- NOTE | 2024-11-01 12:47 | P.PNUR_ITS ---
Progress Note: A&P Assessment and Plan (1) Right testicular torsion: Code(s): N44.00 - Torsion of testis, unspecified Status: Acute Assessment and Plan: Doing well overall post right orchiectomy. Okay to discharge home from Urology standpoint. Patient to remove [place] drain over the next couple days and minimal drainage. If he is unable to do so can follow-up in the office for that early next week. Follow up 7-10 days. Scripts of Cipro 500 p.o. b.i.d. for 7 days and pain meds can be sent to his pharmacy Subjective Subjective Date/Time Seen: 11/01/24 12:47 Post Op day: 1 (Scrotal exploration with right orchiectomy) Principal diagnosis: Testicular torsion with infarcted testicle Interval history: Doing well postoperative day 1. Patient anxious to go home. No fevers or significant complaints Review of Systems Review of Systems: All systems reviewed & are unremarkable except as noted in HPI and below Exam Const: General: cooperative and comfortable : Scrotum: edematous Objective Data Vital Signs Vital Signs: Vital Signs - 24 hr 10/31/24 15:47 10/31/24 15:55 10/31/24 17:44 Temperature 36.3 C L 37.3 C Pulse Rate 71 76 75 Respiratory Rate 16 16 16 Blood Pressure 130/74 130/68 132/67 Pulse Oximetry 100 99 99 Oxygen Delivery Room Air Simple Face Mask Oxygen Flow Rate 10 10/31/24 18:00 10/31/24 18:15 10/31/24 18:30 Temperature Pulse Rate 66 77 69 Respiratory Rate 14 12 17 Blood Pressure 130/67 131/73 130/64 Pulse Oximetry 99 99 99 Oxygen Delivery Simple Face Mask Room Air Room Air Oxygen Flow Rate 10 10/31/24 18:45 10/31/24 21:22 11/01/24 00:00 Temperature 36.3 C L 35.9 C L Pulse Rate 70 71 75 Respiratory Rate 15 18 18 Blood Pressure 137/70 117/63 151/64 H Pulse Oximetry 96 95 100 Oxygen Delivery Room Air Oxygen Flow Rate 11/01/24 05:00 11/01/24 08:00 11/01/24 09:18 Temperature 36.4 C L Pulse Rate 65 82 Respiratory Rate 16 Blood Pressure 130/71 Pulse Oximetry 98 98 Oxygen Delivery Room Air Oxygen Flow Rate Intake/Output Intake/Output: Intake & Output 10/29/24 10/30/24 10/31/24 11/01/24 23:59 23:59 23:59 23:59 Intake Total 340 1030 Balance 340 1030 Meds/Results Medications: Active Medications Generic Name Dose Route Start Last Admin Trade Name Freq PRN Reason Stop Dose Admin Acetaminophen 650 mg 10/31/24 16:50 Acetaminophen 325 Mg Tablet PO Q6H PRN Mild Pain (1-3) or Fever Hydrocodone Bitart/Acetaminophen 1 tab 10/31/24 16:50 Hydrocodone/Acetaminophen (*Crx) 5-325 Mg Tablet PO Q6H PRN Pain Rated 4-6 Hydrocodone Bitart/Acetaminophen 1 tab 10/31/24 18:51 11/01/24 09:15 Hydrocodone/Acetaminophen (*Crx) 5-325 Mg Tablet PO 1 tab Q4H PRN Administration Pain Rated 4-6 Amlodipine Besylate 5 mg 11/01/24 09:00 11/01/24 09:17 Amlodipine Besylate 5 Mg Tablet BY MOUTH 5 mg DAILY LINDA Administration Dicyclomine HCl 20 mg 10/31/24 21:00 11/01/24 12:41 Dicyclomine Hcl 10 Mg Capsule PO Not Given QID LINDA Cefazolin Sodium 1 gm in 50 mls @ 100 mls/hr 10/31/24 22:00 11/01/24 06:32 Ancef 1 Gm/Ns 50 Ml IVPB 100 mls/hr Q8H LINDA Administration Losartan Potassium 100 mg 11/01/24 09:00 11/01/24 09:13 Losartan Potassium 100 Mg Tablet PO 100 mg DAILY LINDA Administration Metoprolol Succinate 50 mg 11/01/24 09:00 11/01/24 09:18 Metoprolol Succinate Ext Rel 50 Mg Tabcr PO 50 mg DAILY LINDA Administration Morphine Sulfate 2 mg 10/31/24 16:50 Morphine Sulfate (*Crx) 2 Mg/Ml Inj IV PUSH Q4H PRN Pain Rated 7-10 Rosuvastatin Calcium 10 mg 11/01/24 09:00 11/01/24 09:17 Rosuvastatin 10 Mg Tablet PO 10 mg DAILY LINDA Administration Radiology Results: ITS Impressions Abdomen/Pelvis CT 10/31/24 14:02 IMPRESSION: 1. Torsion of the right spermatic cord. Heterogeneous attenuation of the right testis, consistent with infarct. I called this result to Rosy Ling. Scrotum Ultrasound 10/31/24 14:05 IMPRESSION: 1. Enlarged and edematous left testis and epididymis with no evident vascular flow on color Doppler consistent with left testicular torsion. The ED physician Dr. Ling has been notified of these findings by Dr. Menard. ADDENDUM: 10/31/24 1443 CORRECTION: There is a dictation error in the impression section. With the correction capitalized this should read- 1. Enlarged and edematous RIGHT testis and epididymis with no evident vascular flow on color Doppler consistent with RIGHT testicular torsion. The ED physician Dr. Ling has been notified of these findings by Dr. Menard. Labs Labs: Laboratory Results - last 24 hr 10/31/24 10/31/24 11/01/24 13:00 15:21 08:35 WBC 11.5 H 10.9 H RBC 4.48 L 3.99 L Hgb 14.3 13.0 L Hct 42.0 37.5 L MCV 93.8 94.0 MCH 31.9 32.6 MCHC 34.0 34.7 RDW 13.2 12.8 Plt Count 233 211 MPV 10.7 H 10.0 Immature Gran % (Auto) 0.7 H Neut % (Auto) 75.3 H Lymph % (Auto) 12.5 L [place] % (Auto) 10.1 H Eos % (Auto) 1.0 Baso % (Auto) 0.4 Lymph # (Auto) 1.43 [place] # (Auto) 1.2 H Eos # (Auto) 0.1 Baso # (Auto) 0.1 Abs Immat Gran (auto) 0.08 H Absolute Neuts (auto) 8.6 H Absolute Nucleated RBC 0.000 Nucleated RBC % 0.0 Sodium 138 137 Potassium 4.0 4.3 Chloride 104 105 Carbon Dioxide 19 L 20 L Anion Gap 15 H 12 BUN 19 18 Creatinine 1.08 0.87 Estim Creat Clear Calc 71 87 Estimated GFR > 60 > 60 Glucose 105 124 H Calcium 9.5 8.9 Total Bilirubin 0.9 AST 26 ALT 25 Alkaline Phosphatase 67 Total Protein 7.0 Albumin 4.0 Urine Color Dark yellow Urine Appearance Clear Urine pH 5.5 Ur Specific [place] 1.022 Urine Protein Negative Urine Glucose (UA) Negative Urine Ketones 1+ H Ur Blood (Man) Trace Urine Nitrate Negative Urine Bilirubin Negative Urine Urobilinogen 1.0 Leukocyte Esterase Rfl Negative Urine RBC 3-5 H Urine WBC 0-5 Ur Squamous Epith Cells None seen Urine Bacteria None seen Urine Casts 0-2
--- NOTE | 2024-11-01 13:11 | P.DS_ITS ---
DS: Admitting Diagnosis Discharge Date 11/01/2024 Admitting Diagnosis right testicular torsion alcohol abuse hypertension DS: Discharge Diagnosis Discharge Diagnosis (1) Right testicular torsion: Code(s): N44.00 - Torsion of testis, unspecified Status: Acute (2) Alcohol abuse: Code(s): F10.10 - Alcohol abuse, uncomplicated Status: Acute (3) Benign essential HTN: Code(s): I10 - Essential (primary) hypertension Status: Acute DS: Summary Hospital Course Reason for hospitalization: right testicular torsion alcohol abuse hypertension Hospital Course: 74 year old male with past medical history of malignant melanoma s/p excision, hyperlipidemia, and hypertension presents to the hospital with intermittent groin pain and testicular swelling. CT abd/pelvis showed torsion of the right spermatic cord, heterogeneous attenuation of the right testis, consistent with infarct. Scrotum US showed enlarged and edematous RIGHT testis and epididymis with no evident vascular flow on color Doppler consistent with RIGHT testicular torsion. Patient started on antibiotics and urology consulted. Patient underwent a scrotal exploration with right orchiectomy on 10/[address] Sprague. Per urology patient is able to discharge. He is to remove the lb drain in a few days and continue his antibiotics to complete the course. Patient is to follow up with urology as scheduled. At time of discharge patient had no complaints denying pain, chest pain, shortness of breath, palpitations, nausea/vomiting and abdominal pain. patient discharged home in a stable condition. He is to continue his antibiotics as prescribed and follow-up with urology as scheduled and his primary care provider in 1 week. Status at Discharge Functional status at discharge: independent ambulation Time Spent with Patient Time attestation: Total time spent providing and/or coordinating discharge services: Time spent: Greater than 30 minutes Exam Narrative: AF HR 65 RR 16 SPO2 98 BP 130/71 General: male in no acute respiratory distress who is nontoxic appearing, lying semi recumbent in bed. HEENT: Normocephalic. Atraumatic. Extraocular movement intact. Sclera clear and anicteric. No facial asymmetry. Chest: Lungs are clear to auscultation bilaterally. No wheezes or crackles. CV: Heart was regular rate and rhythm. S1/S2. No murmurs, gallops, or rubs. : edematous scrotum with clean dry and intact incision Abd: Abdomen was soft. Nontender. Nondistended. Positive bowel sounds. No organomegaly or masses. Ext: No clubbing, cyanosis, or edema. 2+ DP pulses bilaterally. Neuro: Patient is alert and oriented x4. Speech is clear. DS: Data Data Completed and Pending Completed studies during hospitalization: Abdomen pelvis CT scrotal ultrasound Pending studies at discharge: Pending at discharge 10/31/24 17:10 Surgical [PTH] Routine Labs on day of discharge: Labs from last 24 hours 11/01/24 10/31/24 10/31/24 08:35 15:21 13:00 WBC 10.9 H 11.5 H RBC 3.99 L 4.48 L Hgb 13.0 L 14.3 Hct 37.5 L 42.0 MCV 94.0 93.8 MCH 32.6 31.9 MCHC 34.7 34.0 RDW 12.8 13.2 Plt Count 211 233 MPV 10.0 10.7 H Immature Gran % (Auto) 0.7 H Neut % (Auto) 75.3 H Lymph % (Auto) 12.5 L Bee % (Auto) 10.1 H Eos % (Auto) 1.0 Baso % (Auto) 0.4 Lymph # (Auto) 1.43 Bee # (Auto) 1.2 H Eos # (Auto) 0.1 Baso # (Auto) 0.1 Abs Immat Gran (auto) 0.08 H Absolute Neuts (auto) 8.6 H Absolute Nucleated RBC 0.000 Nucleated RBC % 0.0 Sodium 137 138 Potassium 4.3 4.0 Chloride 105 104 Carbon Dioxide 20 L 19 L Anion Gap 12 15 H BUN 18 19 Creatinine 0.87 1.08 Estim Creat Clear Calc 87 71 Estimated GFR > 60 > 60 Glucose 124 H 105 Calcium 8.9 9.5 Total Bilirubin 0.9 AST 26 ALT 25 Alkaline Phosphatase 67 Total Protein 7.0 Albumin 4.0 Urine Color Dark yellow Urine Appearance Clear Urine pH 5.5 Ur Specific [place] 1.022 Urine Protein Negative Urine Glucose (UA) Negative Urine Ketones 1+ H Ur Blood (Man) Trace Urine Nitrate Negative Urine Bilirubin Negative Urine Urobilinogen 1.0 Leukocyte Esterase Rfl Negative Urine RBC 3-5 H Urine WBC 0-5 Ur Squamous Epith Cells None seen Urine Bacteria None seen Urine Casts 0-2 Discharge Plan Discharge Attending physician on discharge: Philip Rosario Consulting providers: Evette Juárez Discharging Clinician: Evette Juárez Anticipated Discharge Date/Time: 11/01/24 13:03 Patient Disposition: Home, Self-Care Activity: january shower Diet: as tolerated and heart healthy Wound Care Instructions: other - see discharge instructions Discharge Instructions: Discharge disposition: Patient admitted to the hospital for testicular torsion Underwent a right orchiectomy on 10/[address] Sprague Take medications a prescribed Ciprofloxacin twice a day for 7 days Tramadol as needed for pain Change dressing as needed. A removed [place] drain if minimal drainage by cutting suture. If unable to do so can follow up in office Monday or Monday for drain removal. Maintain scrotal support and ice pack to scrotal area. Monitor blood pressures Take caution while standing, rising, or moving Change positions slowly taking a break between each position change If you standing feel dizzy sit back down and take a break Encouraged to continue with yearly vaccinations Return to the emergency department if he developed sudden shortness of breath, chest pain, nausea, vomiting, upset stomach or intractable diarrhea Return to the emergency department if you develop fever greater than 101.5 Follow-up with the primary care physician within 1-2 weeks Thank you for [facility] for your healthcare needs Patient Instructions: Antibiotic Form, Ciprofloxacin (By mouth), Tramadol (By mouth), Orchiectomy (DC) Patient Language: Bulgarian Stand Alone Forms: General Discharge Information Follow-up/Referrals: Angelo Palmer MD [Primary Care Provider] - Discharge Medications: New ciprofloxacin HCl 500 mg tablet 500 mg PO Q12H Qty: 14 0RF tramadol 50 mg tablet 50 mg PO Q6H PRN (Reason: pain) Qty: 20 0RF Continued amlodipine 5 mg tablet See Rx Instructions .ROUTE .COMPLEX Qty: 100 3RF Dose Instruction: TAKE 1 TABLET BY MOUTH EVERY DAY Rx Instructions: TAKE 1 TABLET BY MOUTH EVERY DAY losartan 100 mg tablet See Rx Instructions .ROUTE .COMPLEX Qty: 90 4RF Dose Instruction: TAKE 1 TABLET BY MOUTH EVERY DAY Rx Instructions: TAKE 1 TABLET BY MOUTH EVERY DAY dicyclomine 20 mg tablet 20 mg PO QID Qty: 20 0RF metoprolol succinate 50 mg tablet extended release 24 hr See Rx Instructions .ROUTE .COMPLEX Qty: 90 1RF Dose Instruction: TAKE 1 TABLET BY MOUTH EVERY DAY Rx Instructions: TAKE 1 TABLET BY MOUTH EVERY DAY rosuvastatin 10 mg tablet See Rx Instructions .ROUTE .COMPLEX Qty: 90 1RF Dose Instruction: TAKE 1 TABLET BY MOUTH EVERY DAY Rx Instructions: TAKE 1 TABLET BY MOUTH EVERY DAY Date of admission: 10/31/24 18:05 Primary Care Provider: Angelo Palmer Admitting Provider: Zach Sprague Attending physician on admission: Zach Sprague Condition: Stable Hospitalist MIPS Heart Failure (Exclusion) Patient has history of Heart Transplant or Left Ventricular Assistive Device?: No IF YES, STOP HERE Heart Failure (Qualifier) Patient has current or prior documentation of LVEF less than or equal to 40%, or mod/servere depressed LVSF?: No IF NO, STOP HERE
== END 2024-11-01 14:20 | disposition home or self-care (01) ==
LOC: ANHED 15:23 → ANHSURGERY 15:37 → ANH3MEDSUR 11-01 06:53 → ANHSURGERY 11-01 08:52 → ANH3MEDSUR 11-01 08:52
PROVIDERS: Physician Assistant; Student in an Organized Health Care Education/Training Program; Admitting Provider Urology; Emergency Provider Emergency Medicine; PCP Family Medicine; Visit Provider Urology
PROC: (CPT 55110; principal; 2024-10-31 16:30)
DX: N44.00 Torsion of testis, unspecified (principal); N50.1 Vascular disorders of male genital organs; F10.10 Alcohol abuse, uncomplicated; I10 Essential (primary) hypertension; E78.5 Hyperlipidemia, unspecified; M47.816 Spondylosis without myelopathy or radiculopathy, lumbar region; I70.0 Atherosclerosis of aorta; E66.9 Obesity, unspecified; Z68.31 Body mass index [BMI] 31.0-31.9, adult; Z79.899 Other long term (current) drug therapy; Z85.820 Personal history of malignant melanoma of skin
CPT/HCPCS: 54520; 36415; 74176; 76870; 80048; 80053; 81001; 85025; 85027; 88305; 93976; 99285; A9270; G0378; J0690; J1100; J2003; J2405; J2704; J7120